=== PATIENT | male | born 1960 | race Two or more races ===

== ENCOUNTER 2019-08-28 14:18 | Inpatient (IN) | payer OTHER ==
[~2019-08-28] VITALS: Ht 182.9 cm; Wt 73.8 kg
--- NOTE | 2019-08-28 05:02 | NUR ---
Pt. given for edematous Left foot pain of 7/10 scale, aching and hurting.
[2019-08-28] MEDS ORDERED: SODIUM CHLORIDE 0.9% 1,000 ML IV ONE (14:25)
[2019-08-28 15:32] LABS: Basophils # (auto) 0.1 10 ^3/uL (0-0.2); Basophils % (auto) 0.7 % (0.0-2.0); Eosinophils # (auto) 0 10 ^3/uL (0-0.8); Hematocrit 33.8 % (41.0-53.0); Lymphocytes # (auto) 0.9 10 ^3/uL (0.4-5.4); Lymphocytes % (auto) 5.1 % (10.0-50.0); Mean Corpuscular Hemoglobin 28.1 pg (28.0-32.0); Mean Corpuscular Hgb Conc. 32.6 g/dL (32.0-36.0); Mean Corpuscular Volume 86.2 fL (80.0-100.0); Monocytes # (auto) 0.7 10 ^3/uL (0-1.3); Monocytes % (auto) 3.9 % (0.0-12.0); Neutrophils # (auto) 15.7 10 ^3/uL (1.6-8.6); Neutrophils % (auto) 90.3 % (37.0-80.0); Platelet Count (auto) 303 10^3/uL (140-450); Red Blood Cells 3.92 10^6/uL (4.5-5.90); White Blood Cell 17.4 10^3/uL (4.4-10.8)
[2019-08-28 15:50] LABS: Alanine Aminotransferase 25 U/L (16-61); Albumin 2.2 g/dL (3.4-5.0); Anion Gap 6 (5-15); Aspartate Aminotransferase 25 U/L (15-37); BUN/Creatinine Ratio 30.3; Blood Urea Nitrogen 43 mg/dL (7-18); Calcium 8.2 mg/dL (8.5-10.1); Carbon Dioxide 24 mmol/L (21-32); Chloride 99 mmol/L (98-107); GFR African American 66 mL/min; GFR Non-African American 55 mL/min; Glucose 342 mg/dL (74-106); Potassium 4.8 mmol/L (3.5-5.1); Sodium 129 mmol/L (136-145)
[2019-08-28 15:53] LABS: Alkaline Phosphatase 81 U/L (45-117); Bilirubin, Total 0.5 mg/dL (0.2-1.0); Total Protein 7.9 g/dL (6.4-8.2)
[2019-08-28] MEDS ORDERED: CLINDAMYCIN 600MG IV 50 ML IV ONE (16:00)
[2019-08-28] MEDS ORDERED: DEXTROSE (50%) 50ML SYRG IV PRN (17:15)
[2019-08-28] MEDS ORDERED: VANCOMYCIN PER PHARMACY 0 MG IV SCH (17:15)
[2019-08-28] MEDS ORDERED: VANCOMYCIN 1GM/250ML 250 ML IV ONE (17:15)
[2019-08-28] MEDS ORDERED: MORPHINE SULF INJ 2 MG/ML SYRINGE 1ML IV PRN (17:15)
[2019-08-28] MEDS ORDERED: HYDROcodone-ACET 10/325MG TAB PO PRN (17:15)
[2019-08-28] MEDS ORDERED: NITROGLYCERIN 0.4 MG SL TAB SL PRN (17:15)
--- NOTE | 2019-08-28 18:18 | NUR ---
MS admit from ER KAY MANEDL admitted to [facility] after SBAR received. Patient oriented to Jelly Montilla, primary RN, unit, room, bed, and unit policies regarding patient care and visiting hours. Patient weighed by bedscale and encouraged to call if they need something. Dressing to right toe noted c/d/i. Abx resumed as ordered and currently infusing. No distress or sob noted. Patient denies any pain at this time. VSS. All questions and concerns addressed, patient verbalized understanding. Guards at bedside
[2019-08-28 18:47] VITALS: BP 153/73
--- NOTE | 2019-08-28 19:00 | NUR ---
Received report from Day Shift RN. Reaves. Pt. an Inmate, in bed resting, in room Air, no s/s of sob, breathing regular unlabored. Pt. denies pain, with Officer @ the bedside. Keep safe and real estate listing consultant bed.
--- NOTE | 2019-08-28 19:08 | NUR ---
Patient care endorsed endorsed care to Radha marti. Patient laying in bed no acute distress or sob noted. Call light within reach. Guards at bedside. Pt currently infusing abx as ordered
[2019-08-28 19:15] VITALS: BP 153/73
--- NOTE | 2019-08-28 19:26 | NUR ---
MED REC PATIENT STATES HE TAKES METFORMIN AND GLYBURIDE DOES NOT KNOW DOSAGE OR FREQUENCY
--- NOTE | 2019-08-28 19:41 | NUR ---
MRSA MRSA NARES SENT TO LAB PER PROTOCOL
--- NOTE | 2019-08-28 20:00 | NUR ---
Complete assessment done from head to toe. Pt. Medical-Surgical, non-tele, in Room Air, lungs are clear, breathing regular and unlabored. Pt. an inmate with Officers @ the bedside. Pt. on bedrest with handcuffs on both lower forearms, can ambulate to the BR with assist of the officer/RN/SEISMIC PLOTTER. Pt. able to use urinal @ the bedside. Keep pt. clean, dry and comfortable in bed.
[2019-08-28 22:00] VITALS: BP 145/77
--- NOTE | 2019-08-28 22:40 | NUR ---
Accucheck taken with results of BS = 465 , will repeat Accucheck.
[2019-08-28] MEDS: InsuLIN REG 1unit/0.01ml Soln (100units/ml) SC SCH (22:43)
[2019-08-28] MEDS: ACCU-CHEK COMFORT CURVE STRIP VI SCH (22:43)
--- NOTE | 2019-08-28 22:43 | NUR ---
Accucheck taken with result with BS = 487 , this is a repeat Accucheck and pt. made aware of the results.
--- NOTE | 2019-08-28 22:43 | NUR ---
Pt. refused coverage of 15 units. Pt. provided explanation and health teachings about the use of Regular Human Insulin, pt. still refused and verbalized that " I dont want to be dependent on any Insulin" "I used to eat alot and the diabetic pills such as Metformin and glyburide-Micronase tabs. helps lower my blood sugar but I never use Insulin @ the [facility]." Pt. refused the Insulin coverage of [address] Osman to notify pt. latest blood sugar and pt. refusal of the Regular human Insulin coverage.
[2019-08-28] MEDS: ATORVASTATIN 20 MG TAB PO SCH (22:46)
[2019-08-28] MEDS: metFORMIN HYDROCHLORIDE 500 MG TAB PO SCH (22:46)
--- NOTE | 2019-08-28 22:46 | NUR ---
Meds. as scheduled given. Pt. made aware of the mechanism of actions of the meds. as scheduled. Pt. verbalized understanding.
[2019-08-28] MEDS: glyBURIDE 5 MG TAB PO SCH (22:47)
--- NOTE | 2019-08-28 23:30 | NUR ---
Called/Paged notify Dr. Osman of pt.'s high blood sugar 1.) 265 and then repeated Accucheck result 2. ) 487 and that Pt. refused the 15 units for blood sugar greater > 400 , and that the pt. is used with the oral pills to reduce his blood [facility] and that pt. doesn't want to be dependent of the Insulin. Dr. Osman aware of pt.'s refusal and reasoning of his refusal. Dr. Osman and gave no further orders.
--- NOTE | 2019-08-29 00:30 | NUR ---
Pt. resting quietly, sleeping and awakens intermittently. Pt. provided a quiet environment and Lights off to help support proper resting @ night.
--- NOTE | 2019-08-29 03:00 | NUR ---
Pt. given complete bedbath after soiling and cleansed and washed pt. perineal, perianal and whole body. Changed all bed linens, bed sheets, chux, pillow cases, blankets and gown. Pt. dry, clean, and keep comfortable.
[2019-08-29 04:30] VITALS: BP 132/72
--- NOTE | 2019-08-29 04:30 | NUR ---
Pt. complete bedbath given, washed and cleansed pt. Changed all bed sheets, chux, pillow cases, and gown. Pt. temp. is 101.8 Degrees F. Pt. provided cooling measures, placed cool towels on the forehead, ice packs @ both axillary areas and pt. increased fluid or water intake. Pt. able to drink a few glasses of water, given a whole pitcher of water to drink. Encouraged pt. to drink plenty of fluid. Keep pt. clean, safe and cool in bed. Will monitor temp. later.
--- NOTE | 2019-08-29 05:02 | NUR ---
Pt. given Watson 10/325 mg. po 1 tab for 7/10 scale headache, Right great toe wound pain, and gen. pain. Keep pt. safe and comfortable in bed with Officers @ the bedside guarding him.
--- NOTE | 2019-08-29 06:02 | NUR ---
Pt. calm and sleeping. No s/s of facial grimacing, no s/s of anxiety, and no s/s of discomfort. Pt. quiet @ this time and keep environment tranquil.
--- NOTE | 2019-08-29 07:00 | NUR ---
Gave report to Day Shift BARBARA Rowan.
--- NOTE | 2019-08-29 08:01 | NUR ---
Pagemegan Carvajal regarding critical potassium level. Patient asymptomatic at this time, no s/s of distress. Will continue to monitor. Addendum: 08/29/19 at 0817 by Anum Garcia RN WRONG PATIENT, please disregard note.
[2019-08-29 08:30] VITALS: BP 121/66
--- NOTE | 2019-08-29 08:30 | NUR ---
Opening Note Assumed care of patient, he is A & O x 4, no s/s of distress. POC discussed with patient. Patient is comfortable at this time, no complaints of pain. Bed is in lowest, locked position, call light within reach, guards at bedside. Will continue to monitor Q1h and PRN.
[2019-08-29] MEDS: metFORMIN HYDROCHLORIDE 500 MG TAB PO SCH ×2 (10:38→21:43)
[2019-08-29] MEDS: glyBURIDE 5 MG TAB PO SCH ×2 (10:38→21:44)
[2019-08-29] MEDS: ACCU-CHEK COMFORT CURVE STRIP VI SCH ×2 (10:39→21:44)
[2019-08-29] MEDS: DULoxetine HCL 30 MG CAP PO SCH (10:39)
[2019-08-29] MEDS: LISINOPRIL 10 MG TAB PO SCH (10:39)
--- NOTE | 2019-08-29 10:45 | NUR ---
Spoke to Dr. Osman over the phone. Informed Dr. Osman patient is refusing insulin with blood glucose at 457. Last night patient also refused insulin with blood glucose of 487. Dr. Osman informed this RN to notify patient that insulin is necessary for the overall treatment of the patient and is necessary for effective treatment of the infection.
--- NOTE | 2019-08-29 11:00 | NUR ---
Patient agreed to medication administration. Insulin given as ordered. Education given regarding insulin and diabetic management during infection.
[2019-08-29] MEDS: InsuLIN REG 1unit/0.01ml Soln (100units/ml) SC SCH ×2 (11:03→21:45)
[2019-08-29] MEDS ORDERED: ACETAMINOPHEN 325 MG TAB PO PRN (12:00)
[2019-08-29 12:33] VITALS: BP 133/69
[2019-08-29 12:51] LABS: INR 1.09 (0.9-1.15); Partial Thromboplastin Time 28.3 sec (23.64-32.05)
--- NOTE | 2019-08-29 13:30 | NUR ---
Patient rounding Upon patient assessment patient appeared shakey, but A & O x4, no s/s of distress. Checked patient temperature 97.7 orally and checked blood glucose 382, coming down from previous accucheck. Will continue to monitor and medicate per orders.
--- NOTE | 2019-08-29 14:35 | NUR ---
Patient sent to MRI.
--- NOTE | 2019-08-29 17:35 | NUR ---
Spoke to Dr. Quintero over telephone Orders received, read back and verified for arterial study of the lower extremities.
[2019-08-29] MEDS: VANCOMYCIN 1GM/250ML 250 ML IV SCH (18:15)
--- NOTE | 2019-08-29 19:40 | NUR ---
Opening Shift Note Assumed care of patient, awake and alert. No S/S of distress/SOB or pain. Instructed on POC and to call for assist PRN. Bed in lowest locked position, call light within reach, side rails up x2. Will continue to monitor for changes Q1hr and PRN.
--- NOTE | 2019-08-29 20:27 | NUR ---
MD Called Spoke with regarding results of arterial study. New orders recieved and read back for verification for cardiology consult with Dr. Grigsby. Continue care.
[2019-08-29] MEDS: ATORVASTATIN 20 MG TAB PO SCH (21:43)
--- NOTE | 2019-08-29 21:55 | NUR ---
Called/paged Dr. Delgadillo called regarding elevated BS of 419 and 492, 15 units given, see eMAR. Waiting for call back. Continue care.
--- NOTE | 2019-08-29 22:07 | NUR ---
returned call Dr. Delgadillo returned call, updated on patient status and reason for call, new orders received and read back for verification. Continue care.
[2019-08-29 22:20] VITALS: BP 138/70
--- NOTE | 2019-08-30 01:35 | NUR ---
Closing Note Endorsed care to Gee RN. Pt sleeping, no distress noted.
--- NOTE | 2019-08-30 01:40 | NUR ---
Pt recieved ,sleeping,no signs of distress.
[2019-08-30 05:30] VITALS: BP 138/70
[2019-08-30 05:59] LABS: Basophils # (auto) 0.1 10 ^3/uL (0-0.2); Basophils % (auto) 0.5 % (0.0-2.0); Eosinophils # (auto) 0.1 10 ^3/uL (0-0.8); Eosinophils % (auto) 0.5 % (0.0-7.0); Hematocrit 30.1 % (41.0-53.0); Lymphocytes # (auto) 1.1 10 ^3/uL (0.4-5.4); Lymphocytes % (auto) 7.3 % (10.0-50.0); Mean Corpuscular Hemoglobin 28.4 pg (28.0-32.0); Mean Corpuscular Hgb Conc. 33.4 g/dL (32.0-36.0); Monocytes # (auto) 0.6 10 ^3/uL (0-1.3); Neutrophils # (auto) 12.7 10 ^3/uL (1.6-8.6); Neutrophils % (auto) 87.7 % (37.0-80.0); Platelet Count (auto) 332 10^3/uL (140-450); Red Blood Cells 3.54 10^6/uL (4.5-5.90); Red Cell Distribution Width 14.3 % (11.8-14.3); White Blood Cell 14.5 10^3/uL (4.4-10.8)
[2019-08-30 06:14] LABS: BUN/Creatinine Ratio 19.8; Calcium 8.1 mg/dL (8.5-10.1); Potassium 4.5 mmol/L (3.5-5.1)
[2019-08-30 09:00] VITALS: BP 130/66
[2019-08-30] MEDS ORDERED: metFORMIN HYDROCHLORIDE 850 MG TAB PO SCH (10:00)
[2019-08-30] MEDS ORDERED: INSULIN LANTUS (GLARGINE) 1 /0.01ml (100units/ml) SC SCH ×2 (10:00→13:15)
[2019-08-30] MEDS: VANCOMYCIN 1GM/250ML 250 ML IV SCH (10:27)
[2019-08-30] MEDS: DULoxetine HCL 30 MG CAP PO SCH (10:28)
[2019-08-30] MEDS: LISINOPRIL 10 MG TAB PO SCH (10:29)
[2019-08-30] MEDS: ENOXAPARIN SOD 40 MG/0.4 ML SYRINGE SC SCH (10:29)
[2019-08-30] MEDS: InsuLIN REG 1unit/0.01ml Soln (100units/ml) SC SCH ×2 (10:32→21:18)
[2019-08-30] MEDS: ACCU-CHEK COMFORT CURVE STRIP VI SCH ×2 (10:32→21:16)
--- NOTE | 2019-08-30 11:00 | NUR ---
WOUND CARE NOTE: WOUND CONSULT ORDERED FOR PATIENT WITH NECROTIC RIGHT # 1 TOE. PATIENT NOTED UPON ADMIT TO HAVE NECROTIC TOE. WOUND PHOTO TAKEN AT THAT TIME FOR REFERENCE. PATIENT ADMITTED TO [facility] WITH DIAGNOSIS OF RIGHT TOE OSTEOMYELITIS. ENTIRE RIGHT # 1 TOE IS BLACK WITH WET GANGRENE. DR. ALFREDO HAS CONSULTED WITH PATIENT, ORDERS PRESCRIBED. PATIENT WOULD BENEFIT FROM DAILY DRY DRESSING CHANGES OF THE RIGHT # 1 TOE. ALL OTHER RECOMMENDATIONS DEFERRED TO TICK SEWER AT THIS POINT. SKIN/WOUND CARE PLAN IMPLEMENTED. NO FURTHER WOUND CARE MONITORING REQUIRED. Addendum: 08/30/19 at 1645 by Windy Massey RN Amended: Links added.
[2019-08-30 12:30] VITALS: BP 106/51
[2019-08-30] MEDS ORDERED: INSULIN LANTUS (GLARGINE) 1 /0.01ml (100units/ml) SC ONE (13:45)
[2019-08-30 17:22] VITALS: BP 136/68
--- NOTE | 2019-08-30 18:25 | NUR ---
Patient rounding, wound care. Changed linens, cleaned wound and changed dressing, obtained wound culture at this time to the right great toe, sent to lab. Patient tolerated well.
--- NOTE | 2019-08-30 19:50 | NUR ---
Opening Shift Note Assumed care of patient, awake and alert. No S/S of distress/SOB. Fall and safety precautions in place. Call light within reach and able to use. Instructed on POC and to call for assist PRN, patient verbalized understanding and in agreement. Will continue to monitor for changes Q1hr and PRN.
[2019-08-30] MEDS: ATORVASTATIN 20 MG TAB PO SCH (21:17)
[2019-08-30 22:00] VITALS: BP 134/76
--- NOTE | 2019-08-30 22:00 | NUR ---
TEMP ORAL TEMP 99.7 F. COOLING MEASURES INITIATED. PATIENT EDUCATED ON INDICATIONS FOR COOLING MEASURES, PATIENT VERBALIZED UNDERSTANDING AND IN AGREEMENT. WILL CONTINUE TO MONITOR.
--- NOTE | 2019-08-30 23:00 | NUR ---
TEMP RECHECK PATIENT ORAL TEMP NOW 98.5 F. WILL CONTINUE TO MONITOR.
[2019-08-31] MEDS: VANCOMYCIN 1GM/250ML 250 ML IV SCH ×2 (01:07→18:01)
[2019-08-31 05:00] VITALS: BP 131/63
--- NOTE | 2019-08-31 05:30 | NUR ---
TEMP ORAL TEMP 99.7 F. PATIENT REFUSING COOLING MEASURES. PATIENT EDUCATED ON IMPORTANCE OF COOLING MEASURES, PATIENT VERBALIZED UNDERSTANDING. EDUCATION REINFORCED AND PATIENT CONTINUES TO REFUSE. WILL CONTINUE TO MONITOR.
--- NOTE | 2019-08-31 06:30 | NUR ---
TEMP RECHECK ORAL TEMP 99.2 F. PATIENT CONTINUES TO REFUSE COOLING MEASURES. WILL CONTINUE TO MONITOR.
[2019-08-31 09:05] VITALS: BP 147/71
[2019-08-31] MEDS ORDERED: INSULIN LANTUS (GLARGINE) 1 /0.01ml (100units/ml) SC SCH (10:00)
[2019-08-31] MEDS: InsuLIN REG 1unit/0.01ml Soln (100units/ml) SC SCH ×2 (10:00→21:06)
[2019-08-31] MEDS: LISINOPRIL 10 MG TAB PO SCH (11:30)
[2019-08-31] MEDS: DULoxetine HCL 30 MG CAP PO SCH (11:30)
[2019-08-31] MEDS: ASPirin 81 mg TAB PO SCH (11:30)
[2019-08-31] MEDS: CLOPIDOGREL BISULFATE 75 MG TAB PO SCH (11:30)
[2019-08-31] MEDS: ENOXAPARIN SOD 40 MG/0.4 ML SYRINGE SC SCH (11:31)
--- NOTE | 2019-08-31 11:40 | NUR ---
Paged Dr. Osman and spoke to him regarding patient blood glucose Lantus order confirmed to go ahead and give with patient blood sugar at 96. Will medicate per orders. Patient alert and oriented at this time, no s/s of distress.
[2019-08-31] MEDS: ACCU-CHEK COMFORT CURVE STRIP VI SCH ×2 (11:51→21:03)
[2019-08-31] MEDS: INSULIN LANTUS (GLARGINE) 1 /0.01ml (100units/ml) SC SCH (12:30)
[2019-08-31 13:00] VITALS: BP 118/66
[2019-08-31 17:28] VITALS: BP 125/79
--- NOTE | 2019-08-31 17:36 | NUR ---
Patient temp 100 Removed some blanket from patient to begin cooling. Patient tolerating well.
--- NOTE | 2019-08-31 19:40 | NUR ---
Opening Shift Note Assumed care of patient, awake and alert. No S/S of distress/SOB or pain. Fall and safety precautions in place. Call light within reach and able to use. Instructed on POC and to call for assist PRN, patient verbalized understanding and in agreement. Will continue to monitor for changes Q1hr and PRN.
--- NOTE | 2019-08-31 20:00 | NUR ---
WOUND CULTURE WOUND CULTURE OF RIGHT GREAT TOE OBTAINED AND SENT TO LAB. WILL CONTINUE TO MONITOR.
--- NOTE | 2019-08-31 20:10 | NUR ---
DRESSING CHANGED WOUND CARE / DRESSING CHANGE, PER MD ORDER, COMPLETE OF RIGHT GREAT TOE. PATIENT TOLERATED WELL. WILL CONTINUE TO MONITOR.
[2019-08-31 21:00] VITALS: BP 121/75
[2019-08-31] MEDS: ATORVASTATIN 20 MG TAB PO SCH (21:03)
[2019-08-31] MEDS: ACETAMINOPHEN 325 MG TAB PO PRN (21:09)
--- NOTE | 2019-08-31 21:09 | NUR ---
TEMP PATIENT ORAL TEMP 100.1. PATIENT REFUSED COOLING MEASURES, DESPITE EDUCATION, REINFORCEMENT, AND HEARING PATIENT'S CONCERNS OF BEING COLD. PATIENT REEDUCATED OF NEED TO BRING BODY TEMPERATURE DOWN. PATIENT ONLY ACCEPTS TYLENOL AT THIS TIME (SEE EMAR). WILL CONTINUE TO MONITOR.
--- NOTE | 2019-08-31 22:09 | NUR ---
TEMP RECHECK PATIENT ORAL TEMP 99.2. PATIENT CONTINUE TO REFUSE REMOVING EXCESSIVE BLANKETS AND ICE PACKS AND REDUCING TEMPERATURE IN ROOM. PATIENT STATES, "I'LL BE ALRIGHT." REINFORCED NEED/INDICATION FOR COOLING MEASURES. PATIENT CONTINUE TO REFUSE. WILL CONTINUE TO MONITOR.
[2019-09-01 05:00] VITALS: BP 137/67
[2019-09-01] MEDS: VANCOMYCIN 1GM/250ML 250 ML IV SCH ×2 (05:50→18:14)
[2019-09-01 06:24] LABS: Eosinophils # (auto) 0.1 10 ^3/uL (0-0.8); Eosinophils % (auto) 0.4 % (0.0-7.0); Monocytes # (auto) 1.1 10 ^3/uL (0-1.3)
[2019-09-01 06:27] LABS: Basophils # (auto) 0.1 10 ^3/uL (0-0.2); Basophils % (auto) 1.1 % (0.0-2.0); Hemoglobin 10.2 g/dL (13.5-17.5); Lymphocytes # (auto) 1.2 10 ^3/uL (0.4-5.4); Lymphocytes % (auto) 8.8 % (10.0-50.0); Mean Corpuscular Hemoglobin 28.5 pg (28.0-32.0); Monocytes % (auto) 8.4 % (0.0-12.0); Neutrophils # (auto) 10.8 10 ^3/uL (1.6-8.6); Neutrophils % (auto) 81.3 % (37.0-80.0); Platelet Count (auto) 465 10^3/uL (140-450); Red Blood Cells 3.57 10^6/uL (4.5-5.90); Red Cell Distribution Width 14.3 % (11.8-14.3); White Blood Cell 13.3 10^3/uL (4.4-10.8)
[2019-09-01 06:39] LABS: Albumin 1.8 g/dL (3.4-5.0); BUN/Creatinine Ratio 18.7; Bilirubin, Total 0.5 mg/dL (0.2-1.0); Calcium 8.3 mg/dL (8.5-10.1); Total Protein 6.9 g/dL (6.4-8.2)
--- NOTE | 2019-09-01 07:35 | NUR ---
Opening Shift Note Assumed care of patient, awake and alert. No S/S of distress/SOB, no pain noted or reported. Updated on POC and instructed to call for assistance as needed, patient verbalized understanding. Bed locked in lowest position, side rails up x3, call light within reach. Guards at bedside. Will continue to monitor for changes Q1hr and PRN.
--- NOTE | 2019-09-01 07:45 | NUR ---
Patient taken to microbiology lab analyst for procedure. No distress upon departure.
[2019-09-01] MEDS ORDERED: LIDOCAINE 2%HCL (LOCAL ANESTH.) INJ 20ML MDV ONE (08:11)
[2019-09-01] MEDS ORDERED: IODIXANOL 320MG/ML 100ML BTL IV ONE ×2 (08:11→08:42)
[2019-09-01] MEDS ORDERED: ANGIOMAX 250 MG VIAL IV ONE (08:16)
[2019-09-01] MEDS ORDERED: fentaNYL CITRATE 100 MCG/2 ML VL ONE (08:17)
[2019-09-01] MEDS ORDERED: SODIUM CHL 0.9% 50 ML ONE (08:17)
[2019-09-01] MEDS ORDERED: diphenhdrAMINE HCL 50 MG/1 ML VL ONE (08:17)
[2019-09-01] MEDS ORDERED: MIDAZOLAM HCL 1MG/1ML-2 ML VIAL ONE (08:17)
--- NOTE | 2019-09-01 10:40 | NUR ---
Patient returned from research laboratory specialist following procedure. KAY MANDEL brought to room following angiogram. Left groin catheterization site assessed for any bleeding, redness or swelling. Angioseal device in place. Pedal pulses on affected leg assessed for positive tissue perfusion. Patient instructed on need to notify staff immediately if any pain, burning or wetness to site, and any lower back pain. Patient instructed to lie flat until 1130. All questions and concerns addressed, patient verbalized understanding of all education and instruction. Addendum: 09/01/19 at 1055 by Bambi Rod RN No s/s of distress or SOB at this time. No pain noted or reported.
[2019-09-01 10:47] VITALS: BP 160/86
[2019-09-01] MEDS: ENOXAPARIN SOD 40 MG/0.4 ML SYRINGE SC SCH (11:17)
[2019-09-01] MEDS: ASPirin 81 mg TAB PO SCH (11:18)
[2019-09-01] MEDS: CLOPIDOGREL BISULFATE 75 MG TAB PO SCH (11:18)
[2019-09-01] MEDS: LISINOPRIL 10 MG TAB PO SCH (11:19)
[2019-09-01] MEDS: DULoxetine HCL 30 MG CAP PO SCH (11:19)
[2019-09-01] MEDS: INSULIN LANTUS (GLARGINE) 1 /0.01ml (100units/ml) SC SCH (11:24)
[2019-09-01] MEDS: ACCU-CHEK COMFORT CURVE STRIP VI SCH ×2 (11:24→21:27)
[2019-09-01] MEDS: InsuLIN REG 1unit/0.01ml Soln (100units/ml) SC SCH ×2 (11:24→21:33)
--- NOTE | 2019-09-01 11:45 | NUR ---
BLOOD SUGAR AT 63, PROVIDED PATIENT WITH 8OZ OF ORANGE JUICE.
[2019-09-01 13:00] VITALS: BP 130/71
--- NOTE | 2019-09-01 16:00 | NUR ---
SPOKE WITH DR ALFREDO SURGERY SCHEDULED FOR SATURDAY 09/02.
[2019-09-01 16:18] VITALS: BP 140/75
--- NOTE | 2019-09-01 19:30 | NUR ---
Opening Shift Note Assumed care of patient, awake and alert. No S/S of distress/SOB. Fall and safety precautions in place. Call light within reach and able to use. Instructed on POC and to call for assist PRN, patient verbalized understanding. Will continue to monitor for changes Q1hr and PRN.
[2019-09-01] MEDS: ACETAMINOPHEN 325 MG TAB PO PRN (21:27)
[2019-09-01] MEDS: ATORVASTATIN 20 MG TAB PO SCH (21:27)
--- NOTE | 2019-09-01 21:35 | NUR ---
TEMP PATIENT TEMP 100.2 F. PATIENT EDUCATED ON INDICATION/NEED/IMPORTANCE OF COOLING MEASURES. PATIENT REFUSED COOLING MEASURES, EXCEPT FOR MEDICATION ADMINISTRATION (SEE EMAR). PATIENT EDUCATION REINFORCED, PATIENT CONTINUES TO REFUSE. WILL CONTINUE TO MONITOR.
[2019-09-01 22:00] VITALS: BP 131/73
--- NOTE | 2019-09-01 22:45 | NUR ---
TEMP RECHECK PATIENT ORAL TEMP 98.2 F. WILL CONTINUE TO MONITOR.
[2019-09-02 05:00] VITALS: BP 129/73
[2019-09-02 06:35] LABS: Calcium 8.5 mg/dL (8.5-10.1); Potassium 5.1 mmol/L (3.5-5.1)
--- NOTE | 2019-09-02 06:41 | NUR ---
AWAITING VANCO TROUGH RESULTS HOLDING MEDICATION (SEE EMAR) OF NOW. WILL CONTINUE TO MONITOR. Addendum: 09/02/19 at 0644 by DAVID SANTANA RN RN TIME CORRECTION: 0600.
--- NOTE | 2019-09-02 06:44 | NUR ---
LAB CALLED TO INQUIRE ABOUT VANCO TROUGH RESULTS. AWAITING RESPONSE.
--- NOTE | 2019-09-02 06:49 | NUR ---
LAB STATED IT WILL BE ABOUT 5 MINUTES BEFORE RESULTS COME IN FOR VANCO TROUGH. WILL CONTINUE TO MONITOR.
[2019-09-02] MEDS: VANCOMYCIN 1GM/250ML 250 ML IV SCH ×2 (06:54→17:56)
[2019-09-02 09:00] VITALS: BP 131/67
[2019-09-02] MEDS: ACCU-CHEK COMFORT CURVE STRIP VI SCH ×2 (10:00→21:49)
[2019-09-02] MEDS: ASPirin 81 mg TAB PO SCH (10:00)
[2019-09-02] MEDS: ENOXAPARIN SOD 40 MG/0.4 ML SYRINGE SC SCH (10:00)
[2019-09-02] MEDS: CLOPIDOGREL BISULFATE 75 MG TAB PO SCH (10:00)
--- NOTE | 2019-09-02 10:40 | NUR ---
SPOKE TO Chaim ALFREDO. STATED TO HOLD ASPIRIN, PLAVIX, AND LOVENOX FOR TODAY.
[2019-09-02] MEDS: DULoxetine HCL 30 MG CAP PO SCH (11:07)
[2019-09-02] MEDS: LISINOPRIL 10 MG TAB PO SCH (11:08)
[2019-09-02] MEDS: INSULIN LANTUS (GLARGINE) 1 /0.01ml (100units/ml) SC SCH (11:19)
[2019-09-02] MEDS: InsuLIN REG 1unit/0.01ml Soln (100units/ml) SC SCH ×2 (11:19→21:49)
--- NOTE | 2019-09-02 11:23 | NUR ---
LISA GALVAN REGARDING INCREASED BLOOD SUGAR OF 401. PATIENT GIVEN SCHEDULED INSULIN 15 UNITS, LANTUS 70 UNITS. INFORMED [facility] LUMBER STICKER.
[2019-09-02 13:00] VITALS: BP 106/62
[2019-09-02 17:00] VITALS: BP 117/66
--- NOTE | 2019-09-02 19:00 | NUR ---
Opening Shift Note Assumed care of patient, awake and alert. No S/S of distress/SOB or pain. Instructed on POC and to call for assist PRN, will continue to monitor for changes Q1hr and PRN. Pt in lowest possible position with bed rails up x2 and call light within reach.
[2019-09-02 20:00] VITALS: BP 119/71
--- NOTE | 2019-09-02 20:00 | NUR ---
Pt to go for surgery 09/02. Waiting for orders to have patient sign consent for surgery. Will get signature of consent for blood transfusion and anesthesia. Waiting for pt to pee to send urine for a urinalysis as none was done. Talked to pt about this, will continue to monitor.
--- NOTE | 2019-09-02 20:39 | NUR ---
PICC line placement Patient/Patient significant other educated on need for PICC line placement. All risks and benefits explained and all questions and concerns addressed prior to procedure. Noted past medical history and allergies with no contraindications. INR and Plt counts within acceptable range. 4 fr PICC line inserted via RIGH BRACHIAL vein using [employer] US and Tip Location System. Sterile technique with maximum barrier precautions utilized. Blood return obtained from SINGLE lumen and flushed easily with NS using proper technique. PICC secured with Stat-lock; biodisc and occlusive dressing applied. Stat portable chest x-ray obtained for PICC tip placement. *Baseline Arm Circumference 25CM. PICC lot #[id number]. INTERNAL LENGTH 45CM EXTERNAL LENGTH 25CM
[2019-09-02] MEDS ORDERED: LIDOCAINE 1% (LOCAL ANESTH.) PF 5ml SDV ID ONE (20:45)
[2019-09-02] MEDS: SODIUM CHLOR 0.9% PF (SALINE LOCK) 10ML VIAL/SYR IV SCH (21:48)
[2019-09-02] MEDS: ATORVASTATIN 20 MG TAB PO SCH (21:49)
--- NOTE | 2019-09-02 22:05 | NUR ---
OK to use PICC line Xray completed. OK to use PICC line by RADIOLOGIST.
[2019-09-03] VITALS (7 sets, daily range): BP systolic 119–156; BP diastolic 70–81
[2019-09-03 04:16] LABS: Urine Amorphous Crystal FEW /hpf (None Seen); Urine Bacteria FEW /hpf (None Seen); Urine Blood Negative /uL (Negative); Urine Hyaline Cast FEW /lpf (0 - 2); Urine Specific Gravity 1.013 (1.001-1.035); Urine WBC 2 /hpf (0 - 3)
[2019-09-03] MEDS: VANCOMYCIN 1GM/250ML 250 ML IV SCH ×2 (05:57→17:54)
--- NOTE | 2019-09-03 08:02 | NUR ---
Opening Shift Note Assumed care of patient, awake and alert. No S/S of distress/SOB or pain. Instructed on POC and to call for assist PRN, will continue to monitor for changes Q1hr and PRN. Guards at bedside. NPO status maintained for procedure.
--- NOTE | 2019-09-03 08:55 | NUR ---
Off Unit Patient taken to pre-op for procedure. Guards in attendance.
[2019-09-03] MEDS ORDERED: MIDAZOLAM HCL 1MG/1ML-2 ML VIAL ONE (09:06)
[2019-09-03] MEDS ORDERED: ONDANSETRON HCL 4 MG/2 ML VIAL ONE (09:06)
[2019-09-03] MEDS ORDERED: SODIUM CHLORIDE LOCK 10 ML ONE (09:06)
[2019-09-03] MEDS ORDERED: fentaNYL CITRATE 100 MCG/2 ML VL ONE (09:06)
[2019-09-03] MEDS ORDERED: PROPOFOL 10 MG/ML 20 ML IV ONE (09:06)
[2019-09-03] MEDS ORDERED: LIDOCAINE HCL 2 %PF INJ 10ML AMP IJ ONE (09:27)
[2019-09-03] MEDS ORDERED: BUPIVACAINE HCL 50 ML ONE (09:27)
[2019-09-03] MEDS ORDERED: MORPHINE SULFATE 4 MG/ML SYR/VIAL IV PRN (09:30)
[2019-09-03] MEDS ORDERED: KETOROLAC TROMETH 15 mg/ml 1ML VL IV ONE (09:30)
[2019-09-03] MEDS ORDERED: METOCLOPRAMIDE HCL 5MG/ml INJ 2ml VIAL IV PRN (09:30)
[2019-09-03] MEDS ORDERED: fentaNYL CITRATE 100 MCG/2 ML VL IV PRN (09:30)
[2019-09-03] MEDS ORDERED: ACCU-CHEK COMFORT CURVE STRIP VI ONE (09:30)
[2019-09-03] MEDS ORDERED: HYDROmorphone HCL 2 MG/ML VL IV PRN (09:30)
[2019-09-03] MEDS ORDERED: ceFAZolin 1GM VL ONE (09:39)
[2019-09-03] MEDS: ENOXAPARIN SOD 40 MG/0.4 ML SYRINGE SC SCH (10:00)
[2019-09-03] MEDS: CLOPIDOGREL BISULFATE 75 MG TAB PO SCH (10:00)
[2019-09-03] MEDS: InsuLIN REG 1unit/0.01ml Soln (100units/ml) SC SCH ×2 (10:00→21:42)
[2019-09-03] MEDS: ASPirin 81 mg TAB PO SCH (10:00)
[2019-09-03] MEDS ORDERED: KETAMINE HCL 10 ML ONE (10:09)
--- NOTE | 2019-09-03 11:40 | NUR ---
On Unit Patient on unit from OR. Dressing to left foot slightly soiled, but intact. No complaints of pain voiced. Guards at bedside. Will continue to monitor. Addendum: 09/03/19 at 1813 by WILLIAM MARTINES RN Dressing to right foot not left foot.
--- NOTE | 2019-09-03 11:46 | NUR ---
NUTRITION ASSESSMENT NOTES Please refer to link notes of nutrition screen form filed under the intervention section of the plan of care for further details. Est. Energy Needs: 1455-7051 kcal (25-30 kcal/kg BW). Est. Protein Needs: 91-114 gms/day (1.2-1.5 gms/kg BW). Will continue to monitor pertinent labs and reassess nutrient need prn Addendum: 09/03/19 at [address] Amended: Links added.
[2019-09-03] MEDS: DULoxetine HCL 30 MG CAP PO SCH (11:47)
[2019-09-03] MEDS: LISINOPRIL 10 MG TAB PO SCH (11:47)
[2019-09-03] MEDS: ACCU-CHEK COMFORT CURVE STRIP VI SCH ×2 (11:53→21:14)
[2019-09-03] MEDS: INSULIN LANTUS (GLARGINE) 1 /0.01ml (100units/ml) SC SCH (11:56)
[2019-09-03] MEDS: SODIUM CHLOR 0.9% PF (SALINE LOCK) 10ML VIAL/SYR IV SCH ×2 (12:48→22:00)
[2019-09-03 13:25] LABS: Basophils # (auto) 0 10 ^3/uL (0-0.2); Basophils % (auto) 0.3 % (0.0-2.0); Eosinophils # (auto) 0.1 10 ^3/uL (0-0.8); Eosinophils % (auto) 0.5 % (0.0-7.0); Lymphocytes # (auto) 1.3 10 ^3/uL (0.4-5.4); Monocytes # (auto) 0.8 10 ^3/uL (0-1.3)
[2019-09-03 13:27] LABS: Hematocrit 29.4 % (41.0-53.0); Hemoglobin 9.8 g/dL (13.5-17.5); Lymphocytes % (auto) 11.2 % (10.0-50.0); Mean Corpuscular Hemoglobin 28.3 pg (28.0-32.0); Mean Corpuscular Hgb Conc. 33.4 g/dL (32.0-36.0); Mean Corpuscular Volume 84.6 fL (80.0-100.0); Monocytes % (auto) 6.8 % (0.0-12.0); Neutrophils # (auto) 9.4 10 ^3/uL (1.6-8.6); Neutrophils % (auto) 81.2 % (37.0-80.0); Platelet Count (auto) 495 10^3/uL (140-450); Red Blood Cells 3.47 10^6/uL (4.5-5.90); Red Cell Distribution Width 14.4 % (11.8-14.3); White Blood Cell 11.6 10^3/uL (4.4-10.8)
[2019-09-03 13:43] LABS: INR 1.13 (0.9-1.15); Partial Thromboplastin Time 31.3 sec (23.64-32.05)
--- NOTE | 2019-09-03 17:50 | NUR ---
Dressing to right foot soiled, same reinforced.
--- NOTE | 2019-09-03 19:00 | NUR ---
Opening Shift Note Assumed care of patient, awake and alert. No S/S of distress/SOB or pain. Pt post right toe amputation, dressing in tact. Instructed on POC and to call for assist PRN, will continue to monitor for changes Q1hr and PRN. Pt in lowest possible position with call light within reach. Guards at bedside.
[2019-09-03] MEDS: ATORVASTATIN 20 MG TAB PO SCH (21:13)
[2019-09-03] MEDS: ACETAMINOPHEN 325 MG TAB PO PRN (21:57)
--- NOTE | 2019-09-04 01:20 | NUR ---
Dr. Montgomery at bedside No new orders at this time.
[2019-09-04 05:00] VITALS: BP 94/61
[2019-09-04 05:15] LABS: Basophils % (auto) 0.3 % (0.0-2.0); Eosinophils # (auto) 0 10 ^3/uL (0-0.8); Eosinophils % (auto) 0.2 % (0.0-7.0); Hemoglobin 9.3 g/dL (13.5-17.5); Neutrophils # (auto) 12.9 10 ^3/uL (1.6-8.6); Red Blood Cells 3.32 10^6/uL (4.5-5.90)
[2019-09-04 05:17] LABS: Basophils # (auto) 0.1 10 ^3/uL (0-0.2); Hematocrit 28.3 % (41.0-53.0); Lymphocytes # (auto) 1.3 10 ^3/uL (0.4-5.4); Lymphocytes % (auto) 8.3 % (10.0-50.0); Mean Corpuscular Hemoglobin 28.1 pg (28.0-32.0); Mean Corpuscular Volume 85.2 fL (80.0-100.0); Monocytes # (auto) 1.3 10 ^3/uL (0-1.3); Monocytes % (auto) 8.1 % (0.0-12.0); Neutrophils % (auto) 83.1 % (37.0-80.0); Platelet Count (auto) 505 10^3/uL (140-450); Red Cell Distribution Width 14.3 % (11.8-14.3); White Blood Cell 15.6 10^3/uL (4.4-10.8)
[2019-09-04] MEDS: VANCOMYCIN 1GM/250ML 250 ML IV SCH ×2 (05:53→17:08)
--- NOTE | 2019-09-04 05:53 | NUR ---
Vancomycin not given, Vanco trough at 21.4, Per protocol to hold if over 20.
--- NOTE | 2019-09-04 06:52 | NUR ---
Closing shift pt in lowest possible position with bed rails up x2 and call light within reach. Guards at bedside. Will endorse to day shift RN.
[2019-09-04 06:53] LABS: BUN/Creatinine Ratio 22.7; Calcium 8.4 mg/dL (8.5-10.1); Potassium 4.6 mmol/L (3.5-5.1)
--- NOTE | 2019-09-04 08:00 | NUR ---
Opening Note Assumed care of patient, he is A & O x4, no s/s of distress at this time. POC discussed with patient. Bed is in lowest, locked, position, call light within reach, guards at bedside. Will continue to monitor Q1h and PRN. No c/o pain at this time, patient is s/p amputation of first great toe of the R foot and metatarsal.
[2019-09-04 09:00] VITALS: BP 150/78
--- NOTE | 2019-09-04 10:00 | NUR ---
Wound Care at bedside. Wound Vac placed per orders. Patient tolerated well, will continue to monitor.
[2019-09-04] MEDS: InsuLIN REG 1unit/0.01ml Soln (100units/ml) SC SCH ×2 (10:40→22:00)
[2019-09-04] MEDS: INSULIN LANTUS (GLARGINE) 1 /0.01ml (100units/ml) SC SCH (10:41)
--- NOTE | 2019-09-04 10:42 | NUR ---
WOUND CARE NOTE: WOUND CARE TEAM IN TO SEE PATIENT PER WOUND CARE REQUEST. PATIENT ADMITTED TO [facility] FOR OSTEOMYELITIS OF RIGHT GREAT TOE. PATIENT IS S/P AMPUTATION, OPEN, FOR DIABETIC FOOT ULCER. CURRENT LESLEE SCORE IS 21. PHOTOGRAPHS TAKEN FOR POST AMPUTATION REFERENCE. SUTURES ARE INTACT TO THE DORSAL ASPECT OF THE INCISION. PATIENT HAS A LARGE OPEN WOUND MEASURING 8 X 6 X 3.5. SURGEON HAS REQUESTED WOUND VAC PLACEMENT AND TO APPLY WOUND VAC DRESSING AT THIS TIME. OPEN WOUND CAVITY IS BRIGHT RED WITH LIGHT SEROUS DRAINAGE, NO NECROTIC TISSUE NOTED. PERIWOUND IS MILDLY EDEMATOUS WITH RED AND PINK PERIWOUND TISSUE. CLEANED WITH NORMAL SALINE, PATTED DRY WITH STERILE GAUZE. APPLIED CAVILON NO STING BARRIER FILM TO PERIWOUND AND BRIDGE SKIN SITE. COVERED WITH CLEAR FILM DRESSING. PACKED WOUND BED BASE WITH WHITE GRANUFOAM, COVERED WITH BLACK GRANUFOAM. CREATED BRIDGE ACROSS DORSAL FOOT TO ANTERIOR ANKLE, COVERED WITH CLEAR DRAPE, APPLIED TRAC PAD, CONNECTED DRESSING TO ULTA WOUND VAC. INITIATED VAC SET TO 125 MMhG CONTINUOUS, GOOD SUCTION, NO LEAKS DETECTED. FURTHER COVERED DRESSING WITH KNIT STOCKINETTE. PATIENT TOLERATED WELL. ELEVATED FOOT UP ON PILLOWS FOR EDEMA CONTROL. RECOMMEND: Q 3 DAY/PRN DRESSING CHANGE BY BEDSIDE NURSE. DIETARY CONSULT. ELEVATE FOOT UP ON PILLOWS FOR EDEMA CONTROL. NO WEIGHT BEARING ON AFFECTED FOOT. SKIN/WOUND CARE PLAN. CONTINUED MONITORING BY WOUND CARE TEAM. Addendum: 09/04/19 at 1810 by DERRICK HOLLY RN RN Amended: Links added.
[2019-09-04] MEDS: ASPirin 81 mg TAB PO SCH (10:43)
[2019-09-04] MEDS: CLOPIDOGREL BISULFATE 75 MG TAB PO SCH (10:43)
[2019-09-04] MEDS: DULoxetine HCL 30 MG CAP PO SCH (10:43)
[2019-09-04] MEDS: LISINOPRIL 10 MG TAB PO SCH (10:43)
[2019-09-04] MEDS: ENOXAPARIN SOD 40 MG/0.4 ML SYRINGE SC SCH (10:44)
[2019-09-04] MEDS: SODIUM CHLOR 0.9% PF (SALINE LOCK) 10ML VIAL/SYR IV SCH ×2 (10:44→22:26)
[2019-09-04] MEDS: MEROPENEM 1GM IVPB 100 ML IV SCH ×2 (10:44→18:24)
[2019-09-04] MEDS: ACCU-CHEK COMFORT CURVE STRIP VI SCH ×2 (10:45→22:26)
[2019-09-04 13:00] VITALS: BP 143/73
[2019-09-04 17:00] VITALS: BP 126/70
[2019-09-04 22:00] VITALS: BP 105/57
[2019-09-04] MEDS: ATORVASTATIN 20 MG TAB PO SCH (22:26)
[2019-09-05] MEDS: MEROPENEM 1GM IVPB 100 ML IV SCH ×2 (02:45→10:01)
[2019-09-05 05:00] VITALS: BP 137/72
[2019-09-05 06:58] LABS: Basophils % (auto) 0.5 % (0.0-2.0); Eosinophils # (auto) 0.1 10 ^3/uL (0-0.8); Hemoglobin 9.1 g/dL (13.5-17.5); Lymphocytes # (auto) 1.2 10 ^3/uL (0.4-5.4); Neutrophils # (auto) 8.4 10 ^3/uL (1.6-8.6); Red Cell Distribution Width 14.3 % (11.8-14.3); White Blood Cell 10.6 10^3/uL (4.4-10.8)
[2019-09-05 07:00] LABS: Basophils # (auto) 0.1 10 ^3/uL (0-0.2); Eosinophils % (auto) 0.6 % (0.0-7.0); Hematocrit 26.7 % (41.0-53.0); Lymphocytes % (auto) 11.2 % (10.0-50.0); Mean Corpuscular Hemoglobin 28.8 pg (28.0-32.0); Mean Corpuscular Hgb Conc. 34.1 g/dL (32.0-36.0); Mean Corpuscular Volume 84.3 fL (80.0-100.0); Monocytes # (auto) 0.8 10 ^3/uL (0-1.3); Neutrophils % (auto) 79.7 % (37.0-80.0); Platelet Count (auto) 482 10^3/uL (140-450); Red Blood Cells 3.17 10^6/uL (4.5-5.90)
--- NOTE | 2019-09-05 08:30 | NUR ---
Opening Note Assumed care of patient, he is A & O x4, no s/s of distress at this time. POC discussed with patient. Bed is in lowest, locked, position, call light within reach, guards at bedside. Will continue to monitor Q1h and PRN. No c/o pain at this time, patient is s/p amputation of first great toe of the R foot and metatarsal 09/03/19. Patient states "I am feeling pretty good at this time." Wound Vac to the R foot, patent and draining at 125mmhg at this time, no drainage noted at this time.
[2019-09-05 09:00] VITALS: BP 136/68
[2019-09-05] MEDS: INSULIN LANTUS (GLARGINE) 1 /0.01ml (100units/ml) SC SCH (09:54)
[2019-09-05] MEDS: InsuLIN REG 1unit/0.01ml Soln (100units/ml) SC SCH ×2 (10:00→21:43)
[2019-09-05] MEDS: SODIUM CHLOR 0.9% PF (SALINE LOCK) 10ML VIAL/SYR IV SCH ×2 (10:01→21:38)
[2019-09-05] MEDS: LISINOPRIL 10 MG TAB PO SCH (10:02)
[2019-09-05] MEDS: ENOXAPARIN SOD 40 MG/0.4 ML SYRINGE SC SCH (10:02)
[2019-09-05] MEDS: ASPirin 81 mg TAB PO SCH (10:02)
[2019-09-05] MEDS: DULoxetine HCL 30 MG CAP PO SCH (10:02)
[2019-09-05] MEDS: CLOPIDOGREL BISULFATE 75 MG TAB PO SCH (10:03)
[2019-09-05] MEDS: ACCU-CHEK COMFORT CURVE STRIP VI SCH ×2 (10:03→21:43)
--- NOTE | 2019-09-05 10:15 | NUR ---
WOUND CARE NOTE: Wound care in for daily monitoring of wound vac functioning. Patient continue resting in bed in Rm. 244-5. Patient is awake, alert and oriented. He's in no stated pain at this time. Rt foot wound vac dressing is C/D/I and attached to Ulta Vac, functioning well at 125mm Hg continuous with no leak detected. About 25 mL serosanguineous drainage noted in Vacutainer. Wound care team will continue to monitor.
--- NOTE | 2019-09-05 12:46 | NUR ---
Nutrition Follow-up/CONSULT Notes Wt.: 76.6 kg (09/04/19) Pt is s/p R great toe amputation. Currently on Cardiac diet with good appetite aeb avg 100% PO intake. Will continue to monitor pertinent labs and reassess nutrient needs prn Est. Energy Needs: 5053-3449 kcal (25-30 kcal/kg BW). Est. Protein Needs: 91-114 gms/day (1.2-1.5 gms/kg BW). Labs 08/25: Na 133 L, BUN 27 H, Glucose 65 L, Ca 8.4 L Skin: Michael scale 21, low risk, s/p R great toe amputation per hotel controller. PES: ALtered nutrition related lab values r/t current medical condition aeb hyperglycemia, hyponatremia Will continue to monitor PO intake, pertinent labs, skin status and weight trends. F/u in 3 to 5 days. Additional Recommendation: 1) Suggest providing Vitamin C 500mg BID and daily MVi with minerals tab for improved wound healing. 2) If Albumin continues trending down, suggest Prostat 1 pkt BID. 3) Continue current plan of care.
[2019-09-05 13:00] VITALS: BP 119/68
[2019-09-05 17:00] VITALS: BP 123/68
[2019-09-05] MEDS: VANCOMYCIN 1GM/250ML 250 ML IV SCH (17:16)
[2019-09-05] MEDS: MEROPENEM 1 GM/50 ML IV SCH ×2 (18:48)
[2019-09-05] MEDS: [UNRECOGNIZED DRUG - OTHER] IV SCH ×2 (18:48)
[2019-09-05] MEDS: ATORVASTATIN 20 MG TAB PO SCH (21:38)
[2019-09-05 21:55] VITALS: BP 124/66
[2019-09-06] MEDS: MEROPENEM 1 GM/50 ML IV SCH ×6 (02:13→18:23)
[2019-09-06] MEDS: [UNRECOGNIZED DRUG - OTHER] IV SCH ×6 (02:13→18:23)
--- NOTE | 2019-09-06 02:45 | NUR ---
PATIENT REQUESTED TO CHECK BLOOD SUGAR SINCE HE IS FEELING DIZZY, BLOOD SUGAR CHECKED AT 0221 WAS 56, GIVEN APPLE JUICE AND SUSANNA CRACKERS REQUESTED. RECHECKED BLOOD SUGAR AND IT IS 61. GIVEN ANOTHER APPLE JUICE AND SUSANNA CRACKERS AND WILL RECHECK.
--- NOTE | 2019-09-06 03:07 | NUR ---
LATEST BLOOD SUGAR IS 76. PATIENT IS FEELING BETTER.
[2019-09-06 05:00] VITALS: BP 108/61
--- NOTE | 2019-09-06 06:22 | NUR ---
LATEST BLOOD SUGAR THIS MORNING IS 120, PAGED DR. GALVAN TO NOTIFY OF HYPOGLYCEMIA EPISODE.
--- NOTE | 2019-09-06 06:30 | NUR ---
SPOKE WITH DR. GALVAN, CHANGED LANTUS ORDER TO 60UNITS LANTUS DAILY.
--- NOTE | 2019-09-06 08:00 | NUR ---
Opening Shift Note Assumed care of patient, awake and alert. Respiratory even and unlabored. No S/S of distress/SOB or pain. Right foot wound continue to wound vac, patient tolerated well. No s/s of hyperglycemia or hypoglycemia noted. Skin is warm and dry to touch. Instructed on POC and to call for assist PRN, will continue to monitor for changes Q1hr and PRN.
--- NOTE | 2019-09-06 08:00 | NUR ---
Offer patient laxative and prune juices due to last BP 08/28, patient refused. Explained risks and benefits, patient still refused. Will continue to monitor.
--- NOTE | 2019-09-06 08:40 | NUR ---
WOUND CARE NOTE: Wound care in for daily monitoring of wound vac functioning. Patient continue resting in bed in Rm. 244-5. Patient is awake, alert and oriented. He's in no stated pain at this time. Rt foot wound vac dressing is C/D/I and attached to Ulta Vac, functioning well at 125mm Hg continuous with no leak detected. Past 25 mL serosanguineous drainage noted in Vacutainer. Patient's R foot wound vac dressing change schedule to be change tomorrow. Wound care team will continue to monitor.
[2019-09-06 08:59] VITALS: BP 116/63
[2019-09-06] MEDS: CLOPIDOGREL BISULFATE 75 MG TAB PO SCH (09:35)
[2019-09-06] MEDS: DULoxetine HCL 30 MG CAP PO SCH (09:35)
[2019-09-06] MEDS: LISINOPRIL 10 MG TAB PO SCH (09:35)
[2019-09-06] MEDS: ENOXAPARIN SOD 40 MG/0.4 ML SYRINGE SC SCH (09:35)
[2019-09-06] MEDS: ASPirin 81 mg TAB PO SCH (09:35)
[2019-09-06] MEDS: SODIUM CHLOR 0.9% PF (SALINE LOCK) 10ML VIAL/SYR IV SCH ×2 (09:36→21:51)
[2019-09-06] MEDS: ACCU-CHEK COMFORT CURVE STRIP VI SCH ×2 (09:36→21:58)
[2019-09-06] MEDS: INSULIN LANTUS (GLARGINE) 1 /0.01ml (100units/ml) SC SCH (09:36)
[2019-09-06] MEDS: InsuLIN REG 1unit/0.01ml Soln (100units/ml) SC SCH ×2 (09:37→22:01)
[2019-09-06] MEDS ORDERED: [UNRECOGNIZED DRUG - OTHER] IV SCH ×2 (12:00)
[2019-09-06] MEDS ORDERED: MEROPENEM 1 GM/50 ML IV SCH ×2 (12:00)
[2019-09-06 13:45] VITALS: BP 132/65
[2019-09-06] MEDS: VANCOMYCIN 1GM/250ML 250 ML IV SCH (16:51)
[2019-09-06 16:59] VITALS: BP 158/88
[2019-09-06] MEDS: ATORVASTATIN 20 MG TAB PO SCH (21:51)
[2019-09-06 22:00] VITALS: BP 154/78
[2019-09-07] MEDS: [UNRECOGNIZED DRUG - OTHER] IV SCH ×6 (02:14→17:44)
[2019-09-07] MEDS: MEROPENEM 1 GM/50 ML IV SCH ×6 (02:14→17:44)
[2019-09-07 05:39] VITALS: BP 155/84
--- NOTE | 2019-09-07 08:05 | NUR ---
Opening Shift Note Assumed care of patient, awake and alert. No S/S of distress/SOB or pain. Skin is warm and dry to touch, no s/s of hyperglycemia or hypoglycemia noted. Wound to right foot connected to wound vac, functioning well. Instructed on POC and to call for assist PRN, will continue to monitor for changes Q1hr and PRN.
--- NOTE | 2019-09-07 08:42 | NUR ---
Offer patient pain medication for changing wound dressing, patient refused.
[2019-09-07 09:00] VITALS: BP 131/76
[2019-09-07] MEDS: InsuLIN REG 1unit/0.01ml Soln (100units/ml) SC SCH ×2 (10:00→21:56)
[2019-09-07] MEDS: CLOPIDOGREL BISULFATE 75 MG TAB PO SCH (10:08)
[2019-09-07] MEDS: ASPirin 81 mg TAB PO SCH (10:08)
[2019-09-07] MEDS: LISINOPRIL 10 MG TAB PO SCH (10:09)
[2019-09-07] MEDS: DULoxetine HCL 30 MG CAP PO SCH (10:09)
[2019-09-07] MEDS: SODIUM CHLOR 0.9% PF (SALINE LOCK) 10ML VIAL/SYR IV SCH ×2 (10:09→21:54)
[2019-09-07] MEDS: ACCU-CHEK COMFORT CURVE STRIP VI SCH ×2 (10:10→21:54)
[2019-09-07] MEDS: ENOXAPARIN SOD 40 MG/0.4 ML SYRINGE SC SCH (10:10)
--- NOTE | 2019-09-07 10:58 | NUR ---
WOUND CARE NOTE: Wound care in to see patient change R foot wound vac dressing and reevaluation of patient R foot wound. Patient continue resting in bed in Rm. 244-5. Patient is awake,alert and oriented, denies any pain. Pain medication offered by bedside nurse prior dressing change but patient refused and states he has no pain. Removed patient's R foot wound vac dressing. Patient is four days s/p amputation of R great toe with metatarsal head resection. patient's R dorsal foot has sutured incision measuring 7cm. To distal medial R foot (amputation site) is open full thickness wound measuring 6x5.5x3cm. Wound bed is red with yellow slough/adipose tissue,eugene wound is pink, minimal serosanguineous drainage noted,no odor noted. Cleansed wound with wound cleanser,patted dry with gauze. New photograph of wound are taken for reference. Applied skin protectant to periwound, allow to air dry.Applied transparent drape to periwound. Applied one small piece of white foam at inner wound base, leaving tail. Fill wound cavity with one piece black granu foam forming a bridge to dorsal aspect of R foot. Secured foam dressing with sterile transparent drape. Secured R foot wound dressing with stockinette. Applied trac pad and attached with Ulta vac. Continue wound vac at prescribed setting of 125 mmHg continuos therapy. Good suction noted, no leak detected. Patient tolerated well. Elevated patient's R foot on pillow. RECOMMENDATION: Continuation of all wound care orders prescribed by MD, continue with skin/wound plan of care,continue monitoring by wound care while patient is hospitalized. Addendum: 09/07/19 at 1619 by Isabela Rashid RN Amended: Links added.
[2019-09-07] MEDS: INSULIN LANTUS (GLARGINE) 1 /0.01ml (100units/ml) SC SCH (11:03)
--- NOTE | 2019-09-07 11:04 | NUR ---
Wound nurse at bedside, wound dressing changed and connected to wound vac.
[2019-09-07 13:00] VITALS: BP 146/83
[2019-09-07] MEDS: VANCOMYCIN 1GM/250ML 250 ML IV SCH (14:27)
[2019-09-07 17:00] VITALS: BP 128/72
[2019-09-07] MEDS: ATORVASTATIN 20 MG TAB PO SCH (21:54)
[2019-09-07 22:00] VITALS: BP 136/68
--- NOTE | 2019-09-08 02:11 | NUR ---
Patient was diaphoretic, requested to have blood sugar checked. At 0140, blood sugar was 59, given apple juice and jose juan crackers. Rechecked blood sugar and it went up to 81. Patient is feeling better. will keep monitoring.
[2019-09-08] MEDS: [UNRECOGNIZED DRUG - OTHER] IV SCH ×6 (02:23→17:39)
[2019-09-08] MEDS: MEROPENEM 1 GM/50 ML IV SCH ×6 (02:23→17:39)
[2019-09-08 05:00] VITALS: BP 154/85
--- NOTE | 2019-09-08 06:31 | NUR ---
LATEST BLOOD SUGAR IS 98. PAGED DR. GALVAN TO NOTIFY OF HYPOGLYCEMIA EPISODE. WAITING FOR CALL BACK.
--- NOTE | 2019-09-08 06:48 | NUR ---
SPOKE WITH DR. GALVAN REGARDING PATIENT'S HYPOGLYCEMIA. ORDERED TO GIVE PATIENT BEDTIME SNACK TO PREVENT HYPOGLYCEMIA AFTER MIDNIGHT. NO CHANGE ON DIET AT THIS TIME.
[2019-09-08 08:00] VITALS: BP 144/93
[2019-09-08 08:35] VITALS: BP 144/93
[2019-09-08] MEDS: VANCOMYCIN 1GM/250ML 250 ML IV SCH (08:48)
[2019-09-08] MEDS: InsuLIN REG 1unit/0.01ml Soln (100units/ml) SC SCH ×2 (10:00→21:55)
--- NOTE | 2019-09-08 10:00 | NUR ---
WOUND CARE NOTE: Wound care in for daily monitoring of wound vac functioning. Patient continue resting in bed in Rm. 244-5. Patient is awake, alert and oriented. He's in no stated pain at this time. Rt foot wound vac dressing is C/D/I and attached to Ulta Vac, functioning well at 125mm Hg continuous with no leak detected. Past 50 mL serosanguineous drainage noted in Vacutainer. Will continue to monitor.
[2019-09-08] MEDS: SODIUM CHLOR 0.9% PF (SALINE LOCK) 10ML VIAL/SYR IV SCH ×2 (10:15→21:55)
[2019-09-08] MEDS: ASPirin 81 mg TAB PO SCH (10:15)
[2019-09-08] MEDS: LISINOPRIL 10 MG TAB PO SCH (10:16)
[2019-09-08] MEDS: DULoxetine HCL 30 MG CAP PO SCH (10:16)
[2019-09-08] MEDS: ACCU-CHEK COMFORT CURVE STRIP VI SCH ×2 (10:16→21:55)
[2019-09-08] MEDS: CLOPIDOGREL BISULFATE 75 MG TAB PO SCH (10:16)
[2019-09-08] MEDS: INSULIN LANTUS (GLARGINE) 1 /0.01ml (100units/ml) SC SCH (10:17)
[2019-09-08 13:00] VITALS: BP 144/82
--- NOTE | 2019-09-08 14:00 | NUR ---
PER ORDER FROM DR ALFREDO, PROVIDED PATIENT WITH POST OP SHOE. SHOE BEDSIDE WITH PATIENT
[2019-09-08 16:59] VITALS: BP 126/70
[2019-09-08] MEDS: ATORVASTATIN 20 MG TAB PO SCH (21:55)
[2019-09-08 22:00] VITALS: BP 124/73
--- NOTE | 2019-09-09 02:00 | NUR ---
PATIENT'S BEDTIME BLOOD SUGAR WAS 58, BEDTIME SNACK GIVEN, WHEN BLOOD SUGAR RECHECKED IT WAS 55, ADDITIONAL SNACK (APPLE JUICE/SUSANNA CRACKERS) GIVEN, WHEN RECHECKED IT WENT UP TO 70, FOLLOW UP RECHECK AT 0153 WAS 103.
[2019-09-09] MEDS: MEROPENEM 1 GM/50 ML IV SCH ×6 (02:02→17:45)
[2019-09-09] MEDS: [UNRECOGNIZED DRUG - OTHER] IV SCH ×6 (02:02→17:45)
[2019-09-09 05:00] VITALS: BP 133/70
[2019-09-09 05:52] LABS: Basophils # (auto) 0.1 10 ^3/uL (0-0.2); Basophils % (auto) 0.9 % (0.0-2.0); Eosinophils # (auto) 0.1 10 ^3/uL (0-0.8); Eosinophils % (auto) 0.9 % (0.0-7.0); Hematocrit 26.1 % (41.0-53.0); Hemoglobin 8.6 g/dL (13.5-17.5); Lymphocytes # (auto) 2.3 10 ^3/uL (0.4-5.4); Lymphocytes % (auto) 30.2 % (10.0-50.0); Mean Corpuscular Hemoglobin 27.9 pg (28.0-32.0); Mean Corpuscular Volume 84.6 fL (80.0-100.0); Monocytes # (auto) 0.7 10 ^3/uL (0-1.3); Monocytes % (auto) 8.6 % (0.0-12.0); Neutrophils # (auto) 4.6 10 ^3/uL (1.6-8.6); Neutrophils % (auto) 59.4 % (37.0-80.0); Nucleated Red Blood Cells % 0.1 %; Platelet Count (auto) 414 10^3/uL (140-450); Red Blood Cells 3.08 10^6/uL (4.5-5.90); Red Cell Distribution Width 14.8 % (11.8-14.3); White Blood Cell 7.8 10^3/uL (4.4-10.8)
[2019-09-09 06:13] LABS: Albumin 1.8 g/dL (3.4-5.0); BUN/Creatinine Ratio 23.2; Calcium 8.6 mg/dL (8.5-10.1); Potassium 5.1 mmol/L (3.5-5.1)
[2019-09-09 06:15] LABS: Bilirubin, Total 0.3 mg/dL (0.2-1.0); Total Protein 7.1 g/dL (6.4-8.2)
[2019-09-09] MEDS: VANCOMYCIN 1GM/250ML 250 ML IV SCH ×2 (06:27→22:42)
[2019-09-09 08:00] VITALS: BP 130/74
[2019-09-09 09:00] VITALS: BP 130/74
[2019-09-09] MEDS: SODIUM CHLOR 0.9% PF (SALINE LOCK) 10ML VIAL/SYR IV SCH ×2 (09:53→22:42)
[2019-09-09] MEDS: ASPirin 81 mg TAB PO SCH (09:53)
[2019-09-09] MEDS: CLOPIDOGREL BISULFATE 75 MG TAB PO SCH (09:54)
[2019-09-09] MEDS: DULoxetine HCL 30 MG CAP PO SCH (09:54)
[2019-09-09] MEDS: LISINOPRIL 10 MG TAB PO SCH (09:55)
[2019-09-09] MEDS: InsuLIN REG 1unit/0.01ml Soln (100units/ml) SC SCH ×2 (09:55→22:43)
[2019-09-09] MEDS: INSULIN LANTUS (GLARGINE) 1 /0.01ml (100units/ml) SC SCH (09:55)
[2019-09-09] MEDS: ACCU-CHEK COMFORT CURVE STRIP VI SCH ×2 (10:07→22:42)
--- NOTE | 2019-09-09 10:45 | NUR ---
WOUND CARE NOTE: IN TO ASSESS FUNCTION OF WOUND VAC DRESSING TO AMPUTATION OF RIGHT # 1 TOE/FOOT. DRESSING IS INTACT, GOOD SUCTION, NO LEAKS DETECTED. VAC IS SET TO 125 MM/HG CONTINUOUS. WOUND CARE TEAM WILL CONTINUE TO MONITOR.
[2019-09-09 12:42] VITALS: BP 130/65
[2019-09-09 16:53] VITALS: BP 110/63
--- NOTE | 2019-09-09 19:50 | NUR ---
Opening Shift Note Assumed care of patient, awake and alert. No S/S of distress/SOB or pain. Instructed on POC and to call for assist PRN. Bed in lowest locked position, call light within reach, side rails up x2, fall precautions in place. Will continue to monitor for changes Q1hr and PRN.
[2019-09-09 21:48] VITALS: BP 134/68
[2019-09-09] MEDS: ATORVASTATIN 20 MG TAB PO SCH (22:42)
--- NOTE | 2019-09-10 02:15 | NUR ---
PICC Line Dressing PICC line dressing change done with a sterile technique. Patient tolerated well. Continue care.
[2019-09-10] MEDS: [UNRECOGNIZED DRUG - OTHER] IV SCH ×6 (02:19→17:53)
[2019-09-10] MEDS: MEROPENEM 1 GM/50 ML IV SCH ×6 (02:19→17:53)
[2019-09-10 04:52] VITALS: BP 115/57
[2019-09-10 08:00] VITALS: BP 131/74
[2019-09-10 08:59] VITALS: BP 131/74
[2019-09-10] MEDS: SODIUM CHLOR 0.9% PF (SALINE LOCK) 10ML VIAL/SYR IV SCH ×2 (09:42→21:49)
[2019-09-10] MEDS: DULoxetine HCL 30 MG CAP PO SCH (09:43)
[2019-09-10] MEDS: CLOPIDOGREL BISULFATE 75 MG TAB PO SCH (09:43)
[2019-09-10] MEDS: ASPirin 81 mg TAB PO SCH (09:43)
[2019-09-10] MEDS: LISINOPRIL 10 MG TAB PO SCH (09:44)
[2019-09-10] MEDS: INSULIN LANTUS (GLARGINE) 1 /0.01ml (100units/ml) SC SCH (09:44)
[2019-09-10] MEDS: InsuLIN REG 1unit/0.01ml Soln (100units/ml) SC SCH ×2 (09:44→21:50)
[2019-09-10] MEDS: ACCU-CHEK COMFORT CURVE STRIP VI SCH ×2 (09:46→21:50)
--- NOTE | 2019-09-10 11:17 | NUR ---
Nutrition Follow-up Notes Wt.: 79.5 kg Pt currently on Cardiac diet with good appetite aeb avg 96% PO intake over 7 meals. Will continue to monitor pertinent labs and reassess nutrient needs prn. Est. Energy Needs: 0702-7889 kcal (25-30 kcal/kg BW). Est. Protein Needs: 91-114 gms/day (1.2-1.5 gms/kg BW). Labs 09/08: Na 134 L, BUN 26 H, Glucose 65 L, anion gap 4 L, AST 56 H, ALT 62 H, albumin 1.8 L, POC 123 H Skin: Michael scale 20, low risk, R great toe amputation dry & intact per technical mgr. PES: ALtered nutrition related lab values r/t current medical condition aeb hyperglycemia, hyponatremia Will continue to monitor PO intake, pertinent labs, skin status and weight trends. F/u in 3 to 5 days. Additional Recommendation: 1) Suggest providing Vitamin C 500mg BID and daily MVi with minerals tab for improved wound healing. 2) If Albumin continues trending down, suggest Prostat 1 pkt BID. 3) Continue current plan of care.
--- NOTE | 2019-09-10 12:02 | NUR ---
WOUND CARE NOTE: Wound care in to see patient to change R foot wound dressing and for reevaluation of R foot wound. Patient continue resting in bed in Rm. 244-5. Patient is awake,alert and oriented, denies any pain. Pain refused pain medication offered by bedside nurse prior dressing change. Removed patient's R foot wound vac dressing. Patient's R Foot wound s/p amputation of R great toe with metatarsal head resection, remain the same. R medial foot wound measuring 6x5 x2.5cm. Wound bed is red with yellow slough/adipose tissue,eugene wound is pink, minimal serosanguineous drainage noted,no odor noted. Cleansed wound with wound cleanser;patted dry with sterile gauze; New photograph of wound are taken for reference. Applied skin protectant to periwound; allow to air dry; applied transparent drape to periwound. Applied one small piece of white foam at inner wound base, leaving tail. Fill wound cavity with one piece black granu foam, another black foam applied forming a bridge to R lower leg. Secured foam dressing with sterile transparent drape. Applied trac pad and attached with Ulta vac. Secured R foot wound dressing with stockinette. Continue wound vac at prescribed setting of 125 mmHg continuos therapy. Good suction noted, no leak detected. Patient tolerated well. Elevated patient's R foot on pillow. RECOMMENDATION: Continuation of all wound care orders prescribed by MD, continue with skin/wound plan of care,continue monitoring by wound care while patient is hospitalized. Addendum: 09/10/19 at 1502 by Isabela Rashid RN Amended: Links added.
[2019-09-10 13:00] VITALS: BP 154/83
--- NOTE | 2019-09-10 13:50 | NUR ---
DR GALVAN ON UNIT. INFORMED DOCTOR OF PATIENTS POTASSIUM OF 5.1. NO NEW ORDERS RECEIVED.
[2019-09-10] MEDS: VANCOMYCIN 1GM/250ML 250 ML IV SCH (13:51)
[2019-09-10 17:15] VITALS: BP 116/55
[2019-09-10 21:27] VITALS: BP 112/62
[2019-09-10] MEDS: ATORVASTATIN 20 MG TAB PO SCH (21:49)
[2019-09-11] MEDS: [UNRECOGNIZED DRUG - OTHER] IV SCH ×6 (02:03→18:16)
[2019-09-11] MEDS: MEROPENEM 1 GM/50 ML IV SCH ×6 (02:03→18:16)
--- NOTE | 2019-09-11 03:10 | NUR ---
Low Blood sugar Patient called to report that his glucose was low. He was diaphoretic and shaky. Glucose check was 47 and repeat was 44. Gave patient juice boxes x 3, jose juan crackers x 2 and a sandwich. Will recheck and continue to monitor. Signed: 09/11/19 at 0409 by SN PETE <Co-Signature Required> Co-Signed: 09/11/19 at 408 by COURTNEY CASTRO OCA, RN Addendum: 09/11/19 at 0410 by SN PETE [id number] - Blood sugar recheck at 103 Signed: 09/11/19 at 0410 by SN PETE <Co-Signature Required> Co-Signed: 09/11/19 at 0410 by COURTNEY CASTRO OCA, RN
[2019-09-11 04:45] VITALS: BP 139/81
[2019-09-11] MEDS: VANCOMYCIN 1GM/250ML 250 ML IV SCH ×2 (06:42→22:22)
[2019-09-11 08:00] VITALS: BP 131/74
--- NOTE | 2019-09-11 08:00 | NUR ---
ASSESSMENT NOTE PT IS ALERT ORIENTED X4, RESTING IN BED COMFORTABLY NO DISTRESS NOTED, PT HAS WOUND VACUUM ON HIS RT FOOT DUE TO RT TOE AMPUTATION, ABLE TO SELF REPOSITION AND VERBALIS HIS DEMANDS, PAIN 0/10 AT THIS TIME, CALL LIGHT WITHIN REACH
--- NOTE | 2019-09-11 08:15 | NUR ---
WOUND CARE NOTE: Wound care in for daily monitoring of wound vac functioning. Patient continue resting in bed in Rm. 244-5. Patient is awake, alert and oriented. He's in no stated pain at this time. Rt foot wound vac dressing is C/D/I and remain attached to Ulta Vac, functioning well at prescribed setting of 125mm Hg continuous. Good seal noted, no leak detected. 100 mL serosanguineous drainage noted in Vacutainer. Dressing recently changed yesterday. Next dressing change due 09/13/19. Will continue to monitor.
[2019-09-11 09:00] VITALS: BP 147/84
[2019-09-11] MEDS: DULoxetine HCL 30 MG CAP PO SCH (09:00)
[2019-09-11] MEDS: ASPirin 81 mg TAB PO SCH (09:00)
[2019-09-11] MEDS: CLOPIDOGREL BISULFATE 75 MG TAB PO SCH (09:00)
[2019-09-11] MEDS: SODIUM CHLOR 0.9% PF (SALINE LOCK) 10ML VIAL/SYR IV SCH ×2 (09:00→22:19)
[2019-09-11] MEDS: LISINOPRIL 10 MG TAB PO SCH (09:01)
[2019-09-11] MEDS: InsuLIN REG 1unit/0.01ml Soln (100units/ml) SC SCH ×2 (09:06→22:00)
[2019-09-11] MEDS: INSULIN LANTUS (GLARGINE) 1 /0.01ml (100units/ml) SC SCH ×2 (09:15→10:00)
[2019-09-11] MEDS: ACCU-CHEK COMFORT CURVE STRIP VI SCH ×2 (10:00→22:22)
--- NOTE | 2019-09-11 10:00 | NUR ---
LANTUS INSULIN PT REFUSED
[2019-09-11 13:02] VITALS: BP 179/86
[2019-09-11 17:00] VITALS: BP 160/88
[2019-09-11 21:47] VITALS: BP 126/62
[2019-09-11] MEDS: ATORVASTATIN 20 MG TAB PO SCH (22:22)
[2019-09-12] MEDS: [UNRECOGNIZED DRUG - OTHER] IV SCH ×6 (02:20→19:05)
[2019-09-12] MEDS: MEROPENEM 1 GM/50 ML IV SCH ×6 (02:20→19:05)
[2019-09-12 05:34] VITALS: BP 134/74
[2019-09-12 08:10] VITALS: BP 123/67
--- NOTE | 2019-09-12 08:15 | NUR ---
Opening Shift Note Assumed care of patient, awake and alert x4. No S/S of distress/SOB or pain. Instructed on POC and to call for assist PRN. Bed at lowest locked position and call light within reach. Will continue to monitor for changes Q1hr and PRN.
[2019-09-12 09:01] VITALS: BP 123/67
[2019-09-12] MEDS: InsuLIN REG 1unit/0.01ml Soln (100units/ml) SC SCH ×2 (10:00→22:29)
[2019-09-12] MEDS: INSULIN LANTUS (GLARGINE) 1 /0.01ml (100units/ml) SC SCH (10:00)
--- NOTE | 2019-09-12 10:04 | NUR ---
Dr. Osman at bedside.
--- NOTE | 2019-09-12 10:10 | NUR ---
ACCU CHECK Patient's blood sugar check is 276. Patient is refusing Insulin . Patient has been educated on Insulin medication. Patient verbalizes understanding and is refusing all insulin.
[2019-09-12] MEDS: SODIUM CHLOR 0.9% PF (SALINE LOCK) 10ML VIAL/SYR IV SCH ×2 (10:44→22:29)
[2019-09-12] MEDS: ASPirin 81 mg TAB PO SCH (10:44)
[2019-09-12] MEDS: LISINOPRIL 10 MG TAB PO SCH (10:45)
[2019-09-12] MEDS: DULoxetine HCL 30 MG CAP PO SCH (10:45)
[2019-09-12] MEDS: CLOPIDOGREL BISULFATE 75 MG TAB PO SCH (10:45)
[2019-09-12 13:00] VITALS: BP 134/63
[2019-09-12] MEDS: ACCU-CHEK COMFORT CURVE STRIP VI SCH ×2 (13:54→22:29)
[2019-09-12] MEDS: VANCOMYCIN 1GM/250ML 250 ML IV SCH (13:59)
--- NOTE | 2019-09-12 14:00 | NUR ---
called electric golf cart repairer regarding patient's Wound vac on right foot.
[2019-09-12 16:52] VITALS: BP 145/75
--- NOTE | 2019-09-12 17:00 | NUR ---
WOUND CARE NOTE: WOUND CARE TEAM IN TO SEE PATIENT PER BEDSIDE NURSE ADVISING OF AN ISSUE WITH PATIENT'S WOUND VAC ISSUING AN ALARM AND FAILURE TO MAINTAIN VACUUM. UNABLE TO CORRECT ISSUE, DECIDED TO PERFORM COMPLETE DRESSING CHANGE AT THIS TIME. PREVIOUS DRESSING REMOVED. WOUND BED IS RED WITH NO NECROTIC TISSUE NOTED. PERIWOUND SKIN IS RED AND PINK. NO DRAINAGE NOTED. IRRIGATED WITH NORMAL SALINE, PATTED DRY WITH STERILE GAUZE. CAVILON APPLIED TO PERIWOUND, DRAPE APPLIED TO PERIWOUND. WOUND PACKED WITH WHITE GRANUFOAM, COVERED WITH BLACK GRANUFOAM, COVERED WITH DRAPE. APPLIED TRAC PAD AND ATTACHED TO ULTA VAC. TURNED VAC ON AT 125 mmHg CONTINUOUS VACUUM. DRAPE REINFORCED TO ELIMINATE LEAKS. PATIENT TOLERATED DRESSING CHANGE WELL WITH NO PAIN NOTED BY PATIENT. WOUND CARE WILL CONTINUE TO MONITOR.
--- NOTE | 2019-09-12 19:05 | NUR ---
Closing Note Patient is comfortably sitting up in bed, no c/o pain. No s/s of sob/distress. Bed at lowest locked position and call light within reach. Will endorse care to JENNIFER JIMENEZ. Addendum: 09/12/19 at 1910 by Eve Holguin RN guards at bedside for safety.
[2019-09-12 21:26] VITALS: BP 129/72
[2019-09-12] MEDS: ATORVASTATIN 20 MG TAB PO SCH (22:29)
--- NOTE | 2019-09-13 00:41 | NUR ---
PATIENT REPORTED THAT HIS BLOOD SUGAR FELT LOW. UPON CHECKING HIS SUGAR LEVEL WAS 45. I GAVE HIM 3 JUICES AND A SANDWICH. WILL RECHECK IN 30 MINUTES.
--- NOTE | 2019-09-13 01:25 | NUR ---
RECHECK OF PATIENT BLOOD SUGAR WAS 92. WILL CONTINUE TO MONITOR.
[2019-09-13] MEDS: MEROPENEM 1 GM/50 ML IV SCH ×6 (01:41→17:49)
[2019-09-13] MEDS: [UNRECOGNIZED DRUG - OTHER] IV SCH ×6 (01:41→17:49)
[2019-09-13 05:00] VITALS: BP 146/83
[2019-09-13] MEDS: VANCOMYCIN 1GM/250ML 250 ML IV SCH ×2 (05:39→22:15)
--- NOTE | 2019-09-13 07:01 | NUR ---
pt does not s/s of pain or discomfort. respirations are even and nonlabored. patient is an inmate, and has a federal guard at bedside. bed in low locked position, call light within reach.
[2019-09-13 08:43] VITALS: BP 140/72
[2019-09-13] MEDS: CLOPIDOGREL BISULFATE 75 MG TAB PO SCH (09:48)
[2019-09-13] MEDS: LISINOPRIL 10 MG TAB PO SCH (09:49)
[2019-09-13] MEDS: ASPirin 81 mg TAB PO SCH (09:49)
[2019-09-13] MEDS: DULoxetine HCL 30 MG CAP PO SCH (09:49)
[2019-09-13] MEDS: INSULIN LANTUS (GLARGINE) 1 /0.01ml (100units/ml) SC SCH ×3 (09:50→13:00)
[2019-09-13] MEDS: InsuLIN REG 1unit/0.01ml Soln (100units/ml) SC SCH ×2 (09:50→22:00)
[2019-09-13] MEDS: ACCU-CHEK COMFORT CURVE STRIP VI SCH ×2 (09:51→22:00)
[2019-09-13] MEDS: SODIUM CHLOR 0.9% PF (SALINE LOCK) 10ML VIAL/SYR IV SCH ×2 (09:53→22:15)
--- NOTE | 2019-09-13 10:30 | NUR ---
WOUND CARE NOTE: IN TO ASSESS FUNCTION OF WOUND VAC DRESSING TO THE RIGHT FOOT AT THIS TIME. PATIENT'S VAC IS RUNNING AT 125 MM/HG CONTINUOUS. GOOD SUCTION, NO LEAKS DETECTED. WOUND CARE TEAM WILL CONTINUE TO MONITOR.
[2019-09-13 12:40] VITALS: BP 152/80
[2019-09-13 17:14] VITALS: BP 118/59
--- NOTE | 2019-09-13 19:00 | NUR ---
Opening Shift Note Assumed care of patient, awake and alert. No S/S of distress/SOB or pain. Instructed on POC and to call for assist PRN, will continue to monitor for changes Q1hr and PRN.
[2019-09-13 22:00] VITALS: BP 107/61
[2019-09-13] MEDS: ATORVASTATIN 20 MG TAB PO SCH (22:15)
[2019-09-14] MEDS: MEROPENEM 1 GM/50 ML IV SCH ×6 (02:11→18:14)
[2019-09-14] MEDS: [UNRECOGNIZED DRUG - OTHER] IV SCH ×6 (02:11→18:14)
[2019-09-14 05:00] VITALS: BP 131/74
--- NOTE | 2019-09-14 07:30 | NUR ---
OPENING SHIFT NOTE: PATIENT AWAKE A/O X4. TALKING EXCESSIVELY TO BEDSIDE GUARDS. PATIENT APPEARS ANXIOUS INFORMING THIS RN ON ACCUCHECK SCHEDULE IN THE INSTITUTION. PATIENT REQUESTING BLOOD SUGAR CHECK. READING AT 66, PATIENT HAS JUICE AND IS EATING BREAKFAST. PATIENT UNABLE TO COMPREHEND DIABETIC EDUCATION AT THIS TIME, PATIENT "IS AN EXPERT ON MY BODY. I HAVE BEEN DOING THIS FOR 17 YEARS AND YOU GUYS AREN'T DOING IT RIGHT." UPDATED ON PLAN OF CARE, WOUND VAC IN PLACE AT ORDERED SETTING NO SIGNS OF LEAKS, CALL LIGHT WITHIN REACH, WILL CONTINUE TO MONITOR.
[2019-09-14] MEDS ORDERED: metFORMIN HYDROCHLORIDE 500 MG TAB PO SCH ×2 (08:00→11:30)
[2019-09-14] MEDS: SODIUM CHLOR 0.9% PF (SALINE LOCK) 10ML VIAL/SYR IV SCH ×2 (08:05→22:37)
[2019-09-14] MEDS: DULoxetine HCL 30 MG CAP PO SCH (08:40)
[2019-09-14] MEDS: ASPirin 81 mg TAB PO SCH (08:41)
[2019-09-14] MEDS: LISINOPRIL 10 MG TAB PO SCH (08:44)
[2019-09-14] MEDS: CLOPIDOGREL BISULFATE 75 MG TAB PO SCH (08:45)
[2019-09-14] MEDS: ACCU-CHEK COMFORT CURVE STRIP VI SCH ×2 (08:45→22:00)
[2019-09-14 08:48] VITALS: BP 141/74
[2019-09-14] MEDS: InsuLIN REG 1unit/0.01ml Soln (100units/ml) SC SCH ×2 (10:00→22:00)
[2019-09-14] MEDS: INSULIN LANTUS (GLARGINE) 1 /0.01ml (100units/ml) SC SCH (10:00)
--- NOTE | 2019-09-14 10:20 | NUR ---
PATIENT REFUSING LANTUS AT THIS TIME.
--- NOTE | 2019-09-14 10:25 | NUR ---
LOG PREPARER ROUNDING. SEAL LEAK TO TUBING CONNECTION FIXED.
--- NOTE | 2019-09-14 10:30 | NUR ---
WOUND CARE NOTE: IN TO SEE PATIENT, CHECK FUNCTION OF WOUND VAC DRESSING AT THIS TIME. PATIENT'S TRAC PAD HAS BEEN PULLED AWAY FROM PATIENT'S DRESSING, WITH LESS PRESSURE ON ULTAVAC. REINFORCED DRESSING OVER TRAC PAD WITH DRAPE. GOOD SUCTION, NO LEAKS DETECTED, VAC RUNNING AT 125 MM/HG CONTINUOUS. WOUND CARE TEAM WILL CONTINUE TO MONITOR.
[2019-09-14 13:22] VITALS: BP 130/66
--- NOTE | 2019-09-14 13:44 | NUR ---
PATIENT REQUESTING PT TO AMBULATE IN THE UNIT. PATIENT INFORMED PHYSICAL THERAPY DISCHARGED ON THE August PER PT BOB. PATIENT AMBULATORY WITHOUT ASSISTANCE. PATIENT ENCOURAGED TO AMBULATE, GUARDS AT BEDSIDE AWARE.
[2019-09-14] MEDS: VANCOMYCIN 1GM/250ML 250 ML IV SCH (15:13)
[2019-09-14 16:58] VITALS: BP 142/69
--- NOTE | 2019-09-14 19:05 | NUR ---
CARE ENDORSED TO CAYETANO JIMENEZ.
[2019-09-14 22:00] VITALS: BP 125/73
--- NOTE | 2019-09-14 22:35 | NUR ---
Pt refusing insulin. Glucofage not given. MAR did not allowed. Will ask Pharmacy to reschedule.
[2019-09-14] MEDS: ATORVASTATIN 20 MG TAB PO SCH (22:37)
[2019-09-15] MEDS: MEROPENEM 1 GM/50 ML IV SCH ×6 (02:26→17:50)
[2019-09-15] MEDS: [UNRECOGNIZED DRUG - OTHER] IV SCH ×6 (02:26→17:50)
[2019-09-15 05:00] VITALS: BP 134/78
[2019-09-15] MEDS: VANCOMYCIN 1GM/250ML 250 ML IV SCH ×2 (05:55→22:30)
--- NOTE | 2019-09-15 08:22 | NUR ---
PT REQUESTING BLOOD SUGAR CHECK PER PATIENT "I NEED TO HAVE MY BLOOD SUGAR CHECKED BECAUSE I FEEL LIKE IT IS LOW AND I USUALLY DROP LOW AT NIGHT TIME. PLEASE CHECK IT FOR ME" PT BLOOD SUGAR 141
[2019-09-15 09:00] VITALS: BP 148/87
[2019-09-15] MEDS: InsuLIN REG 1unit/0.01ml Soln (100units/ml) SC SCH ×2 (10:00→22:00)
[2019-09-15] MEDS: metFORMIN HYDROCHLORIDE 850 MG TAB PO SCH ×2 (10:09→22:35)
[2019-09-15] MEDS: CLOPIDOGREL BISULFATE 75 MG TAB PO SCH (10:09)
[2019-09-15] MEDS: SODIUM CHLOR 0.9% PF (SALINE LOCK) 10ML VIAL/SYR IV SCH ×2 (10:09→22:30)
[2019-09-15] MEDS: LISINOPRIL 10 MG TAB PO SCH (10:10)
[2019-09-15] MEDS: ASPirin 81 mg TAB PO SCH (10:10)
[2019-09-15] MEDS: ACCU-CHEK COMFORT CURVE STRIP VI SCH ×2 (10:10→22:00)
[2019-09-15] MEDS: DULoxetine HCL 30 MG CAP PO SCH (10:11)
--- NOTE | 2019-09-15 10:30 | NUR ---
WOUND CARE NOTE: WOUND CARE TEAM IN TO REASSES WOUND S/P AMPUTATION OF RIGHT GREAT TOE AND FOR WOUND VAC DRESSING CHANGE. PATIENT ADMITTED TO [facility] FOR OSTEOMYELITIS OF RIGHT GREAT TOE. PATIENT IS S/P AMPUTATION. OLD WOUND VAC DRESSING REMOVED. SUTURES ARE INTACT TO THE DORSAL ASPECT OF THE INCISION. OPEN WOUND CAVITY IS BRIGHT RED WITH NO DRAINAGE. NO NECROTIC TISSUE NOTED. PERIWOUND IS MILDLY EDEMATOUS WITH RED AND PINK PERIWOUND TISSUE. CLEANSED WOUND WITH NORMAL SALINE, PATTED DRY WITH STERILE GAUZE. APPLIED CAVILON NO STING BARRIER FILM TO PERIWOUND AND BRIDGE SKIN SITE. COVERED WITH CLEAR FILM DRESSING. PACKED WOUND BED BASE WITH WHITE GRANUFOAM, COVERED WITH BLACK GRANUFOAM. CREATED BRIDGE ACROSS DORSAL FOOT COVERED WITH CLEAR DRAPE. APPLIED TRAC PAD, CONNECTED DRESSING TO ULTA WOUND VAC. CONTINUED VAC SETTING TO 125 mmHg CONTINUOUS. GOOD VACUUM OBTAINED WITH NO LEAKS DETECTED. FURTHER COVERED DRESSING WITH KNIT STOCKINETTE. PATIENT TOLERATED WELL. ELEVATED FOOT FOR EDEMA CONTROL. RECOMMEND: CONTINUE Q3DAY/PRN DRESSING CHANGE. DAILY MONITORING BY WOUND CARE TEAM. Addendum: 09/15/19 at 1624 by DERRICK HOLLY RN RN Amended: Links added.
[2019-09-15 11:46] VITALS: BP 101/52
--- NOTE | 2019-09-15 14:57 | NUR ---
Nutrition Follow-up Notes Wt.: 76.5 kg Pt currently on Cardiac diet with good appetite aeb 100% PO intake over 6 meals. Will continue to monitor pertinent labs and reassess nutrient needs prn. Est. Energy Needs: 0635-9423 kcal (25-30 kcal/kg BW). Est. Protein Needs: 91-114 gms/day (1.2-1.5 gms/kg BW). Labs : Glucose 141 H, albumin 1.8 L GI: Last BM noted on 09/14/19 per RN doc Skin: Michael scale 20, low risk, R great toe amputation dry & intact per rn licensed practical. PES: Altered nutrition related lab values r/t current medical condition aeb hyperglycemia, hyponatremia Will continue to monitor PO intake, pertinent labs, skin status and weight trends. F/u in 3 to 5 days. Additional Recommendation: 1) Suggest providing Vitamin C 500mg BID and daily MVi with minerals tab for improved wound healing. 2) If Albumin continues trending down, suggest Prostat 1 pkt BID. 3) Continue current plan of care.
[2019-09-15 17:00] VITALS: BP 135/70
[2019-09-15 22:00] VITALS: BP 114/65
[2019-09-15] MEDS: ATORVASTATIN 20 MG TAB PO SCH (22:30)
[2019-09-16] MEDS: [UNRECOGNIZED DRUG - OTHER] IV SCH ×6 (02:17→17:59)
[2019-09-16] MEDS: MEROPENEM 1 GM/50 ML IV SCH ×6 (02:17→17:59)
[2019-09-16 05:00] VITALS: BP 141/72
[2019-09-16] MEDS: metFORMIN HYDROCHLORIDE 850 MG TAB PO SCH ×2 (07:59→17:59)
[2019-09-16] MEDS: ACCU-CHEK COMFORT CURVE STRIP VI SCH ×2 (08:00→22:19)
[2019-09-16] MEDS: InsuLIN REG 1unit/0.01ml Soln (100units/ml) SC SCH ×2 (08:00→22:00)
--- NOTE | 2019-09-16 08:00 | NUR ---
PT REFUSING INSULIN BS 134. PT STATES "I DONT NEED THE INSULIN BECAUSE OF THE METFORMIN, IF I TAKE BOTH MY BLOOD SUGAR WILL DROP."
--- NOTE | 2019-09-16 08:18 | NUR ---
WOUND CARE NOTE: Wound care in for daily monitoring of wound vac functioning. Patient continue resting in bed in Rm. 244-5. Patient is awake, alert and oriented. He's in no stated pain at this time. Rt foot wound vac dressing is C/D/I, attached to Ulta Vac, functioning well at 125mm Hg continuous as MD prescribed . Good seal noted, no leak detected. 25 mL serosanguineous drainage noted in Vacutainer. Dressing recently changed yesterday. Next dressing change due 09/18/19. Will continue to monitor.
[2019-09-16 08:36] VITALS: BP 108/67
[2019-09-16] MEDS: SODIUM CHLOR 0.9% PF (SALINE LOCK) 10ML VIAL/SYR IV SCH ×2 (09:03→22:17)
[2019-09-16] MEDS: ASPirin 81 mg TAB PO SCH (09:04)
[2019-09-16] MEDS: DULoxetine HCL 30 MG CAP PO SCH (09:04)
[2019-09-16] MEDS: CLOPIDOGREL BISULFATE 75 MG TAB PO SCH (09:04)
[2019-09-16] MEDS: LISINOPRIL 10 MG TAB PO SCH (09:05)
[2019-09-16 13:00] VITALS: BP 122/65
[2019-09-16] MEDS: VANCOMYCIN 1GM/250ML 250 ML IV SCH (13:57)
[2019-09-16 17:00] VITALS: BP 134/79
--- NOTE | 2019-09-16 17:22 | NUR ---
PICC LINE DRESSING CHANGED
--- NOTE | 2019-09-16 19:30 | NUR ---
Opening Shift Note Report received from day shift RN. Assumed care of patient, awake and A&O x4. No S/S of distress/SOB noted and patient denies pain at this time. Wound Vac to right foot in place, secured with no leakage noted. Skin to handcuffed areas intact. Instructed on POC and to call for assist PRN, will continue to monitor for changes Q1hr and PRN.
--- NOTE | 2019-09-16 22:00 | NUR ---
PATIENT REFUSED 2200 INSULIN PER SS FOR A BLOOD GLUCOSE LEVEL OF 247. PATIENT STATES HIS BLOOD SUGAR WILL DROP.
[2019-09-16 22:01] VITALS: BP 144/65
[2019-09-16] MEDS: ATORVASTATIN 20 MG TAB PO SCH (22:17)
[2019-09-17] MEDS: [UNRECOGNIZED DRUG - OTHER] IV SCH ×4 (01:30→10:00)
[2019-09-17] MEDS: MEROPENEM 1 GM/50 ML IV SCH ×4 (01:30→10:00)
[2019-09-17 05:00] VITALS: BP 150/73
[2019-09-17 05:01] VITALS: BP 138/75
[2019-09-17] MEDS: VANCOMYCIN 1GM/250ML 250 ML IV SCH (05:37)
[2019-09-17 07:14] LABS: Basophils # (auto) 0.2 10 ^3/uL (0-0.2); Basophils % (auto) 3.7 % (0.0-2.0); Eosinophils # (auto) 0.1 10 ^3/uL (0-0.8); Eosinophils % (auto) 3.1 % (0.0-7.0); Hematocrit 25.6 % (41.0-53.0); Hemoglobin 8.9 g/dL (13.5-17.5); Lymphocytes # (auto) 1.4 10 ^3/uL (0.4-5.4); Lymphocytes % (auto) 32.3 % (10.0-50.0); Mean Corpuscular Hemoglobin 29.6 pg (28.0-32.0); Mean Corpuscular Hgb Conc. 34.6 g/dL (32.0-36.0); Mean Corpuscular Volume 85.4 fL (80.0-100.0); Monocytes # (auto) 0.4 10 ^3/uL (0-1.3); Monocytes % (auto) 9.3 % (0.0-12.0); Neutrophils # (auto) 2.3 10 ^3/uL (1.6-8.6); Neutrophils % (auto) 51.6 % (37.0-80.0); Nucleated Red Blood Cells % 0.1 %; Platelet Count (auto) 218 10^3/uL (140-450); Red Cell Distribution Width 14.7 % (11.8-14.3); White Blood Cell 4.5 10^3/uL (4.4-10.8)
[2019-09-17 07:35] LABS: Albumin 2.2 g/dL (3.4-5.0); BUN/Creatinine Ratio 22.7; Calcium 8.6 mg/dL (8.5-10.1); Potassium 4.8 mmol/L (3.5-5.1)
[2019-09-17 07:38] LABS: Bilirubin, Total 0.4 mg/dL (0.2-1.0)
[2019-09-17 08:00] VITALS: BP 188/94
[2019-09-17] MEDS: metFORMIN HYDROCHLORIDE 850 MG TAB PO SCH (08:00)
--- NOTE | 2019-09-17 08:00 | NUR ---
Patient refusing medications, care, and answering questions. Patient states, he will only answer to DR Osman. Patient states, medications should be given to him when he wants them, not when they are scheduled ig we are not going to go by his rules. Patient educated on risks of refusing medications and care. Will cont to monitor patient.
[2019-09-17 08:36] VITALS: BP 186/87
--- NOTE | 2019-09-17 09:30 | NUR ---
PATIENT REFUSING MORNING MEDICATIONS. PATIENT STATING HE "IS COOL." THIS NURSE ASKED IF THAT MEANT PATIENT WAS REFUSING AND PATIENT NODDED YES. PATIENT EDUCATED ON THE RISK OF REFUSING MEDICATIONS INCLUDING EDUCATION ON A HIS HIGH BP. PATIENT CONTINUES TO REFUSE STATING "I'LL BE OK" WILL CONT TO MONITOR.
[2019-09-17] MEDS: CLOPIDOGREL BISULFATE 75 MG TAB PO SCH (10:00)
[2019-09-17] MEDS: ASPirin 81 mg TAB PO SCH (10:00)
[2019-09-17] MEDS: ACCU-CHEK COMFORT CURVE STRIP VI SCH (10:00)
[2019-09-17] MEDS: InsuLIN REG 1unit/0.01ml Soln (100units/ml) SC SCH (10:00)
[2019-09-17] MEDS: DULoxetine HCL 30 MG CAP PO SCH (10:00)
[2019-09-17] MEDS: SODIUM CHLOR 0.9% PF (SALINE LOCK) 10ML VIAL/SYR IV SCH (10:00)
[2019-09-17] MEDS: LISINOPRIL 10 MG TAB PO SCH (10:00)
--- NOTE | 2019-09-17 10:00 | NUR ---
WOUND CARE NOTE: IN TO ASSESS FUNCTION OF WOUND VAC TO RIGHT FOOT AT THIS TIME. VAC IS RUNNING AT 125 MM/HG CONTINUOUS. GOOD SUCTION, NO LEAKS DETECTED. WOUND CARE TEAM WILL CONTINUE TO MONITOR.
--- NOTE | 2019-09-17 12:45 | NUR ---
HOSPITALIST AT BEDSIDE MD GALVAN AT BEDSIDE AWARE OF PATIENT STATUS. ORDER FOR DISCHARGE RECEIVED DUE TO PATIENT REFUSING CARE. WILL CARRY OUT NEW ORDERS.
[2019-09-17 13:00] VITALS: BP 141/77
[2019-09-17] MEDS ORDERED: GLIP5TAB12 PO (13:07)
[2019-09-17] MEDS ORDERED: SULF400T11 PO (13:07)
[2019-09-17] MEDS ORDERED: LEVO500T21 PO (13:07)
[2019-09-17 13:21] VITALS: BP 141/77
--- NOTE | 2019-09-17 14:00 | NUR ---
WOUND CARE NOTE: ADVISED BY BEDSIDE NURSE THAT PATIENT HAS BEEN DISCHARGED, AND WILL BE RETURNING BACK TO THE HALFWAY SHORTLY. WOUND VAC DRESSING TO BE DC'D AT THIS TIME. WOUND VAC TURNED OFF. DRESSING REMOVED FROM RIGHT FOOT/HALLUX. DISCHARGE PHOTO TAKEN AT THIS TIME PER PROTOCOL. CLEANSED WOUND WITH NS, PATTED DRY WITH STERILE GAUZE. PACKED WOUND BED WITH MOIST TO DRY DRESSING, SOAKED WITH BETADINE. COVERED WITH MULTIPLE LAYERS OF STERILE 4X4 GAUZE SPONGES. WRAPPED FOOT WITH 2 LARGE KERLIX, STOCKINETTE. PATIENT TOLERATED DRESSING CHANGE WELL, NOTING NO PAIN BY PATIENT. PATIENT TO BE DISCHARGED SHORTLY.
--- NOTE | 2019-09-17 14:08 | NUR ---
Discharge to Care Home Discharge instructions given to guards as ordered. All questions and concerns addressed. Patient verbalized understanding. Medication reconciliation form completed and copy given to patient. PICC line removed with catheter intact, pressure dressing applied. Wound vac removed and wet to dry dressing applied to right toe amputated. Patient escorted out with longterm guards. No distress noted at time of departure.
== END 2019-09-17 14:00 | DRG 239 ==
LOC: ER 14:18 → EDBD 14:18 → EEVIPCON 14:18 → OVERFLOW 14:19 → EAST 17:55
PROVIDERS: ADMIT Internal Medicine; ATTEND Internal Medicine
PROC: 047K3ZZ Dilation of Right Femoral Artery, Percutaneous Approach (ICD-10-PCS; 2019-09-01)
PROC: B41GYZZ Fluoroscopy of Left Lower Extremity Arteries using Other Contrast (ICD-10-PCS; 2019-09-01)
PROC: B41FYZZ Fluoroscopy of Right Lower Extremity Arteries using Other Contrast (ICD-10-PCS; 2019-09-01)
PROC: 02HV33Z Insertion of Infusion Device into Superior Vena Cava, Percutaneous Approach (ICD-10-PCS; 2019-09-02)
PROC: 0Y6M0Z9 Detachment at Right Foot, Partial 1st Ray, Open Approach (ICD-10-PCS; 2019-09-03)
PROC: 0Y6P0Z0 Detachment at Right 1st Toe, Complete, Open Approach (ICD-10-PCS; principal; 2019-09-03 09:46)
DX: E11.52 Type 2 diabetes mellitus with diabetic peripheral angiopathy with gangrene (principal); E43 Unspecified severe protein-calorie malnutrition; A48.0 Gas gangrene; M86.8X7 Other osteomyelitis, ankle and foot; L02.611 Cutaneous abscess of right foot; E11.69 Type 2 diabetes mellitus with other specified complication; E11.65 Type 2 diabetes mellitus with hyperglycemia; I10 Essential (primary) hypertension; E11.621 Type 2 diabetes mellitus with foot ulcer; F32.9 Major depressive disorder, single episode, unspecified; L97.509 Non-pressure chronic ulcer of other part of unspecified foot with unspecified severity; Z98.61 Coronary angioplasty status; Z89.411 Acquired absence of right great toe; Z91.19 Patient's noncompliance with other medical treatment and regimen; Z68.22 Body mass index [BMI] 22.0-22.9, adult; Z72.0 Tobacco use; Z79.4 Long term (current) use of insulin; Z79.84 Long term (current) use of oral hypoglycemic drugs
CPT/HCPCS: 36415; 36569; 37224; 71045; 71046; 73700; 73718; 75716; 80048; 80053; 80202; 81001; 82565; 82962; 85025; 85610; 85730; 86850; 86900; 86901; 87070; 87075; 87076; 87077; 87081; 87186; 87205; 93306; 93926; 96365; 96375; 96379; 97163; 99152; 99153; G0378; J0690; J1815; J2185; J2250; J2405; J2704; J3490; Q9967

== ENCOUNTER 2020-09-17 17:44 | Inpatient (IN) | payer OTHER ==
[~2020-09-17] VITALS: Ht 193 cm; Wt 70.4 kg
[~2020-09-17 17:44] MED LIST: GLIP5TAB12 PO; LEVO500T31 PO; SULF400T11 PO
[2020-09-17] MEDS ORDERED: KETOROLAC TROMETH 30 MG/ML 1ML VIAL IV ONE (20:15)
[2020-09-17 20:48] LABS: Basophils # (auto) 0 10 ^3/uL (0-0.2); Basophils % (auto) 0.4 % (0.0-2.0); Eosinophils # (auto) 0 10 ^3/uL (0-0.8); Eosinophils % (auto) 0.1 % (0.0-7.0); Hematocrit 25.7 % (41.0-53.0); Hemoglobin 8.5 g/dL (13.5-17.5); Lymphocytes # (auto) 1.6 10 ^3/uL (0.4-5.4); Lymphocytes % (auto) 13.1 % (10.0-50.0); Mean Corpuscular Hemoglobin 27.3 pg (28.0-32.0); Mean Corpuscular Hgb Conc. 32.9 g/dL (32.0-36.0); Monocytes # (auto) 0.8 10 ^3/uL (0-1.3); Monocytes % (auto) 6.3 % (0.0-12.0); Neutrophils # (auto) 9.9 10 ^3/uL (1.6-8.6); Neutrophils % (auto) 80.1 % (37.0-80.0); Nucleated Red Blood Cells % 0.1 %; Platelet Count (auto) 370 10^3/uL (140-450); White Blood Cell 12.3 10^3/uL (4.4-10.8)
[2020-09-17 20:56] LABS: INR 1.12 (0.9-1.15)
[2020-09-17 21:10] LABS: Alanine Aminotransferase 13 U/L (16-61); Albumin 2.9 g/dL (3.4-5.0); Anion Gap 8 (5-15); Aspartate Aminotransferase 8 U/L (15-37); BUN/Creatinine Ratio 25.2; Blood Urea Nitrogen 30 mg/dL (7-18); Calcium 9.1 mg/dL (8.5-10.1); Carbon Dioxide 24 mmol/L (21-32); Chloride 98 mmol/L (98-107); GFR African American 80 mL/min; GFR Non-African American 67 mL/min; Glucose 341 mg/dL (74-106); Sodium 130 mmol/L (136-145)
[2020-09-17 21:25] LABS: Alkaline Phosphatase 80 U/L (45-117); Bilirubin, Total 0.4 mg/dL (0.2-1.0); Total Protein 8.6 g/dL (6.4-8.2)
[2020-09-17] MEDS ORDERED: MORPHINE SULF INJ 2 MG/ML SYRINGE 1ML IV PRN (22:45)
[2020-09-17] MEDS ORDERED: DEXTROSE (50%) 50ML SYRG IV PRN (22:45)
[2020-09-17] MEDS ORDERED: NITROGLYCERIN 0.4 MG SL TAB SL PRN (22:45)
[2020-09-17] MEDS ORDERED: VANCOMYCIN 1GM/250ML 250 ML IV ONE (23:00)
[2020-09-18] VITALS (7 sets, daily range): BP systolic 112–156; BP diastolic 60–81
[2020-09-18] MEDS ORDERED: ATOR20TA PO (05:11)
[2020-09-18] MEDS ORDERED: METF-370 PO (05:11)
[2020-09-18] MEDS ORDERED: LISI-648 PO (05:11)
[2020-09-18] MEDS ORDERED: METF-929 PO (05:11)
[2020-09-18] MEDS: InsuLIN REG 1unit/0.01ml Soln (100units/ml) SC SCH ×4 (06:31→22:01)
[2020-09-18] MEDS: HYDROcodone-ACET 10/325MG TAB PO PRN ×5 (06:33→21:57)
[2020-09-18] MEDS: ACCU-CHEK COMFORT CURVE STRIP VI SCH ×4 (07:00→22:51)
[2020-09-18] MEDS: ENOXAPARIN SOD 40 MG/0.4 ML SYRINGE SC SCH (08:56)
[2020-09-18] MEDS: ATORVASTATIN 20 MG TAB PO SCH (08:57)
[2020-09-18] MEDS: metFORMIN HYDROCHLORIDE 500 MG TAB PO SCH (08:57)
[2020-09-18] MEDS: VANCOMYCIN 1GM/250ML 250 ML IV SCH ×2 (08:58→22:00)
[2020-09-18] MEDS: glipiZIDE 5 MG TAB PO SCH (09:33)
[2020-09-18] MEDS: VANCOMYCIN PER PHARMACY 1,000 MG IV SCH ×2 (10:00→22:00)
[2020-09-18] MEDS: LISINOPRIL 5 MG TAB PO SCH ×2 (10:14→22:51)
[2020-09-18] MEDS: PIOGLITAZONE HYDROCHLORIDE 30 MG TAB PO SCH (10:32)
[2020-09-19 05:00] VITALS: BP 109/60
[2020-09-19] MEDS: InsuLIN REG 1unit/0.01ml Soln (100units/ml) SC SCH ×4 (05:56→22:01)
[2020-09-19] MEDS: HYDROcodone-ACET 10/325MG TAB PO PRN ×5 (05:59→21:55)
[2020-09-19] MEDS: ACCU-CHEK COMFORT CURVE STRIP VI SCH ×4 (06:40→22:00)
[2020-09-19] MEDS: ATORVASTATIN 20 MG TAB PO SCH (08:42)
[2020-09-19] MEDS: ENOXAPARIN SOD 40 MG/0.4 ML SYRINGE SC SCH (08:43)
[2020-09-19] MEDS: LISINOPRIL 5 MG TAB PO SCH ×2 (08:43→21:53)
[2020-09-19] MEDS: VANCOMYCIN 1GM/250ML 250 ML IV SCH ×2 (08:43→22:00)
[2020-09-19] MEDS: glipiZIDE 5 MG TAB PO SCH (08:47)
[2020-09-19] MEDS: VANCOMYCIN PER PHARMACY 1,000 MG IV SCH ×2 (08:47→22:00)
[2020-09-19] MEDS: metFORMIN HYDROCHLORIDE 500 MG TAB PO SCH (08:47)
[2020-09-19 08:56] VITALS: BP 94/56
[2020-09-19] MEDS: PIOGLITAZONE HYDROCHLORIDE 30 MG TAB PO SCH (13:15)
[2020-09-19 13:26] VITALS: BP 90/50
[2020-09-19 17:00] VITALS: BP 122/68
[2020-09-19 22:00] VITALS: BP 143/67
[2020-09-20 05:00] VITALS: BP 153/80
[2020-09-20] MEDS: HYDROcodone-ACET 10/325MG TAB PO PRN ×5 (05:58→23:49)
[2020-09-20] MEDS: InsuLIN REG 1unit/0.01ml Soln (100units/ml) SC SCH ×4 (06:13→22:30)
[2020-09-20] MEDS: ACCU-CHEK COMFORT CURVE STRIP VI SCH ×4 (07:16→22:30)
[2020-09-20 09:00] VITALS: BP 106/57
[2020-09-20] MEDS: PIOGLITAZONE HYDROCHLORIDE 30 MG TAB PO SCH (09:46)
[2020-09-20] MEDS: metFORMIN HYDROCHLORIDE 500 MG TAB PO SCH (10:06)
[2020-09-20] MEDS: glipiZIDE 5 MG TAB PO SCH (10:07)
[2020-09-20] MEDS: ATORVASTATIN 20 MG TAB PO SCH (10:07)
[2020-09-20] MEDS: LISINOPRIL 5 MG TAB PO SCH ×2 (10:08→22:30)
[2020-09-20] MEDS: ENOXAPARIN SOD 40 MG/0.4 ML SYRINGE SC SCH (10:09)
[2020-09-20 10:31] LABS: Basophils # (auto) 0 10 ^3/uL (0-0.2); Basophils % (auto) 0.2 % (0.0-2.0); Eosinophils # (auto) 0 10 ^3/uL (0-0.8); Eosinophils % (auto) 0.1 % (0.0-7.0); Hematocrit 27.9 % (41.0-53.0); Hemoglobin 9.3 g/dL (13.5-17.5); Lymphocytes # (auto) 1.1 10 ^3/uL (0.4-5.4); Lymphocytes % (auto) 9.8 % (10.0-50.0); Mean Corpuscular Hemoglobin 27.9 pg (28.0-32.0); Mean Corpuscular Hgb Conc. 33.3 g/dL (32.0-36.0); Mean Corpuscular Volume 83.7 fL (80.0-100.0); Monocytes # (auto) 0.7 10 ^3/uL (0-1.3); Monocytes % (auto) 6.5 % (0.0-12.0); Neutrophils # (auto) 9.2 10 ^3/uL (1.6-8.6); Neutrophils % (auto) 83.4 % (37.0-80.0); Platelet Count (auto) 417 10^3/uL (140-450); Red Blood Cells 3.33 10^6/uL (4.5-5.90); Red Cell Distribution Width 15.2 % (11.8-14.3)
[2020-09-20 11:48] LABS: BUN/Creatinine Ratio 28.8; Calcium 9.5 mg/dL (8.5-10.1)
[2020-09-20 13:00] VITALS: BP 147/77
[2020-09-20] MEDS: VANCOMYCIN 1GM/250ML 250 ML IV SCH (13:42)
[2020-09-20] MEDS: VANCOMYCIN PER PHARMACY 1,000 MG IV SCH (13:45)
[2020-09-20] MEDS ORDERED: cefTRIAXone 1GM/50ML D5W 50 ML IV ONE (15:45)
[2020-09-20] MEDS ORDERED: VANCOMYCIN PER PHARMACY 1,000 MG IV SCH (16:15)
[2020-09-20 17:00] VITALS: BP 144/75
[2020-09-20] MEDS ORDERED: ACETAMINOPHEN 325 MG TAB PO PRN (22:15)
[2020-09-20] MEDS: PIPERACILLIN-TAZOB 3.375GM 100 ML IV SCH (22:30)
[2020-09-20 22:38] VITALS: BP 140/68
[2020-09-21] MEDS: HYDROcodone-ACET 10/325MG TAB PO PRN ×4 (03:42→20:05)
[2020-09-21 05:15] VITALS: BP 158/83
[2020-09-21 06:00] VITALS: BP 146/74
[2020-09-21] MEDS: PIPERACILLIN-TAZOB 3.375GM 100 ML IV SCH ×3 (06:30→22:00)
[2020-09-21] MEDS: ACCU-CHEK COMFORT CURVE STRIP VI SCH ×4 (06:40→22:00)
[2020-09-21] MEDS: InsuLIN REG 1unit/0.01ml Soln (100units/ml) SC SCH ×4 (06:41→22:00)
[2020-09-21] MEDS: glipiZIDE 5 MG TAB PO SCH (08:33)
[2020-09-21] MEDS: metFORMIN HYDROCHLORIDE 500 MG TAB PO SCH (08:33)
[2020-09-21 08:38] VITALS: BP 144/73
[2020-09-21] MEDS ORDERED: cefTRIAXone 1GM/50ML D5W 50 ML IV SCH (09:00)
[2020-09-21] MEDS: PIOGLITAZONE HYDROCHLORIDE 30 MG TAB PO SCH (10:13)
[2020-09-21] MEDS: ATORVASTATIN 20 MG TAB PO SCH (10:13)
[2020-09-21] MEDS: LISINOPRIL 5 MG TAB PO SCH ×2 (10:14→22:00)
[2020-09-21] MEDS: ENOXAPARIN SOD 40 MG/0.4 ML SYRINGE SC SCH (10:14)
[2020-09-21 13:00] VITALS: BP 123/64
[2020-09-21 14:38] LABS: INR 1.13 (0.9-1.15); Partial Thromboplastin Time 38.4 sec (23.0-31.2)
[2020-09-21] MEDS: VANCOMYCIN 1GM/250ML 250 ML IV SCH (14:59)
[2020-09-21 17:17] VITALS: BP 98/60
[2020-09-21 22:13] VITALS: BP 100/57
[2020-09-22] MEDS: HYDROcodone-ACET 10/325MG TAB PO PRN ×4 (03:05→21:46)
[2020-09-22 05:54] VITALS: BP 102/49
[2020-09-22] MEDS: PIPERACILLIN-TAZOB 3.375GM 100 ML IV SCH ×3 (06:00→21:54)
[2020-09-22] MEDS: InsuLIN REG 1unit/0.01ml Soln (100units/ml) SC SCH ×4 (06:45→22:01)
[2020-09-22] MEDS: ACCU-CHEK COMFORT CURVE STRIP VI SCH ×4 (06:48→21:58)
[2020-09-22] MEDS: glipiZIDE 5 MG TAB PO SCH (07:30)
[2020-09-22] MEDS: metFORMIN HYDROCHLORIDE 500 MG TAB PO SCH (07:56)
[2020-09-22] MEDS ORDERED: ceFAZolin 1GM/50ML 50 ML IV ONE (08:29)
[2020-09-22] MEDS ORDERED: ceFAZolin 1GM VL ONE (08:48)
[2020-09-22] MEDS ORDERED: MIDAZOLAM HCL 1MG/1ML-2 ML VIAL ONE (09:01)
[2020-09-22] MEDS ORDERED: fentaNYL CITRATE 100 MCG/2 ML VL ONE ×2 (09:01→09:54)
[2020-09-22] MEDS ORDERED: PROPOFOL 10 MG/ML 20 ML IV ONE (09:46)
[2020-09-22] MEDS: ENOXAPARIN SOD 40 MG/0.4 ML SYRINGE SC SCH (10:00)
[2020-09-22] MEDS: PIOGLITAZONE HYDROCHLORIDE 30 MG TAB PO SCH (10:00)
[2020-09-22] MEDS: LISINOPRIL 5 MG TAB PO SCH ×2 (10:00→21:56)
[2020-09-22] MEDS: ATORVASTATIN 20 MG TAB PO SCH (10:00)
[2020-09-22] MEDS ORDERED: ONDANSETRON HCL 4 MG/2 ML VIAL ONE (10:20)
[2020-09-22] MEDS: HYDROmorphone HCL 2 MG/ML VL ONE ×2 (10:45→10:50)
[2020-09-22] MEDS ORDERED: HYDROmorphone HCL 2 MG/ML VL IV PRN (10:45)
[2020-09-22] MEDS ORDERED: ONDANSETRON HCL 4 MG/2 ML VIAL IV PRN (10:45)
[2020-09-22 13:00] VITALS: BP 113/52
[2020-09-22] MEDS: VANCOMYCIN 1GM/250ML 250 ML IV SCH (14:14)
[2020-09-22 16:57] VITALS: BP 99/51
[2020-09-22] MEDS: SODIUM CHLOR 0.9% PF (SALINE LOCK) 10ML VIAL/SYR IV SCH (21:54)
[2020-09-22 22:00] VITALS: BP 131/66
[2020-09-23] MEDS: HYDROcodone-ACET 10/325MG TAB PO PRN ×4 (02:19→22:35)
[2020-09-23 05:00] VITALS: BP 149/75
[2020-09-23] MEDS: PIPERACILLIN-TAZOB 3.375GM 100 ML IV SCH ×3 (06:21→22:31)
[2020-09-23] MEDS: ACCU-CHEK COMFORT CURVE STRIP VI SCH ×4 (06:39→22:32)
[2020-09-23] MEDS: InsuLIN REG 1unit/0.01ml Soln (100units/ml) SC SCH ×4 (06:41→22:00)
[2020-09-23] MEDS: glipiZIDE 5 MG TAB PO SCH (06:44)
[2020-09-23 09:00] VITALS: BP 113/59
[2020-09-23] MEDS: metFORMIN HYDROCHLORIDE 500 MG TAB PO SCH (09:53)
[2020-09-23] MEDS: SODIUM CHLOR 0.9% PF (SALINE LOCK) 10ML VIAL/SYR IV SCH ×2 (09:54→22:30)
[2020-09-23] MEDS: ATORVASTATIN 20 MG TAB PO SCH (09:54)
[2020-09-23] MEDS: PIOGLITAZONE HYDROCHLORIDE 30 MG TAB PO SCH (10:01)
[2020-09-23] MEDS: ENOXAPARIN SOD 40 MG/0.4 ML SYRINGE SC SCH (10:02)
[2020-09-23] MEDS: LISINOPRIL 5 MG TAB PO SCH ×2 (10:03→22:32)
[2020-09-23 12:28] VITALS: BP 138/64
[2020-09-23] MEDS: VANCOMYCIN 1GM/250ML 250 ML IV SCH (14:43)
[2020-09-23 16:29] VITALS: BP 131/67
[2020-09-23 22:00] VITALS: BP 144/79
[2020-09-23] MEDS: metFORMIN HYDROCHLORIDE 850 MG TAB PO SCH (22:30)
[2020-09-24 05:00] VITALS: BP 123/66
[2020-09-24] MEDS: ACCU-CHEK COMFORT CURVE STRIP VI SCH ×5 (06:27→23:17)
[2020-09-24] MEDS: InsuLIN REG 1unit/0.01ml Soln (100units/ml) SC SCH ×4 (06:27→22:00)
[2020-09-24] MEDS: PIPERACILLIN-TAZOB 3.375GM 100 ML IV SCH ×3 (06:28→23:13)
[2020-09-24] MEDS: glipiZIDE 5 MG TAB PO SCH (06:49)
[2020-09-24] MEDS: metFORMIN HYDROCHLORIDE 850 MG TAB PO SCH ×2 (08:08→17:32)
[2020-09-24] MEDS: HYDROcodone-ACET 10/325MG TAB PO PRN ×3 (08:08→23:25)
[2020-09-24 09:00] VITALS: BP 134/71
[2020-09-24] MEDS: PIOGLITAZONE HYDROCHLORIDE 30 MG TAB PO SCH (10:39)
[2020-09-24] MEDS: ATORVASTATIN 20 MG TAB PO SCH (10:39)
[2020-09-24] MEDS: SODIUM CHLOR 0.9% PF (SALINE LOCK) 10ML VIAL/SYR IV SCH ×2 (10:40→23:12)
[2020-09-24] MEDS: ENOXAPARIN SOD 40 MG/0.4 ML SYRINGE SC SCH (10:40)
[2020-09-24] MEDS: LISINOPRIL 5 MG TAB PO SCH ×2 (10:40→23:15)
[2020-09-24 12:33] VITALS: BP 135/70
[2020-09-24] MEDS: VANCOMYCIN 1GM/250ML 250 ML IV SCH (14:04)
[2020-09-24 16:18] VITALS: BP 95/53
[2020-09-24 22:00] VITALS: BP 118/60
[2020-09-25 05:00] VITALS: BP 139/74
[2020-09-25] MEDS: PIPERACILLIN-TAZOB 3.375GM 100 ML IV SCH ×3 (06:50→22:00)
[2020-09-25] MEDS: glipiZIDE 5 MG TAB PO SCH (06:51)
[2020-09-25] MEDS: ACCU-CHEK COMFORT CURVE STRIP VI SCH ×4 (06:51→22:00)
[2020-09-25] MEDS: InsuLIN REG 1unit/0.01ml Soln (100units/ml) SC SCH ×4 (06:52→22:00)
[2020-09-25] MEDS: HYDROcodone-ACET 10/325MG TAB PO PRN ×3 (06:52→21:02)
[2020-09-25 08:29] VITALS: BP 139/67
[2020-09-25] MEDS: metFORMIN HYDROCHLORIDE 850 MG TAB PO SCH ×2 (09:05→18:01)
[2020-09-25] MEDS: PIOGLITAZONE HYDROCHLORIDE 30 MG TAB PO SCH (10:15)
[2020-09-25] MEDS: SODIUM CHLOR 0.9% PF (SALINE LOCK) 10ML VIAL/SYR IV SCH ×2 (10:15→22:00)
[2020-09-25] MEDS: ENOXAPARIN SOD 40 MG/0.4 ML SYRINGE SC SCH (10:16)
[2020-09-25] MEDS: ATORVASTATIN 20 MG TAB PO SCH (10:16)
[2020-09-25] MEDS: LISINOPRIL 5 MG TAB PO SCH ×2 (10:16→22:00)
[2020-09-25 12:33] VITALS: BP 122/68
[2020-09-25] MEDS: VANCOMYCIN 1GM/250ML 250 ML IV SCH (14:55)
[2020-09-25 16:34] VITALS: BP 144/82
[2020-09-25 22:28] VITALS: BP 134/68
[2020-09-26] MEDS: HYDROcodone-ACET 10/325MG TAB PO PRN ×2 (01:58→06:48)
[2020-09-26 05:27] VITALS: BP 148/75
[2020-09-26] MEDS: PIPERACILLIN-TAZOB 3.375GM 100 ML IV SCH (06:47)
[2020-09-26] MEDS: InsuLIN REG 1unit/0.01ml Soln (100units/ml) SC SCH ×2 (06:52→11:30)
[2020-09-26] MEDS: ACCU-CHEK COMFORT CURVE STRIP VI SCH ×2 (06:54→11:30)
[2020-09-26] MEDS: glipiZIDE 5 MG TAB PO SCH (06:54)
[2020-09-26] MEDS: metFORMIN HYDROCHLORIDE 850 MG TAB PO SCH (08:00)
[2020-09-26 08:42] VITALS: BP 149/81
[2020-09-26] MEDS: PIOGLITAZONE HYDROCHLORIDE 30 MG TAB PO SCH (09:55)
[2020-09-26] MEDS: SODIUM CHLOR 0.9% PF (SALINE LOCK) 10ML VIAL/SYR IV SCH (09:55)
[2020-09-26] MEDS: ENOXAPARIN SOD 40 MG/0.4 ML SYRINGE SC SCH (09:56)
[2020-09-26] MEDS: ATORVASTATIN 20 MG TAB PO SCH (09:56)
[2020-09-26] MEDS: LISINOPRIL 5 MG TAB PO SCH (09:56)
[2020-09-26] MEDS ORDERED: CIPR500T4 PO (10:29)
[2020-09-26 11:03] VITALS: BP 149/81
== END 2020-09-26 11:25 | DRG 617 ==
LOC: ER 17:44 → EEVIPCON 17:44 → OVERFLOW 22:53 → WEST WING 23:44
PROVIDERS: ADMIT Internal Medicine; ATTEND Internal Medicine
PROC: 0Y6M0ZB Detachment at Right Foot, Partial 2nd Ray, Open Approach (ICD-10-PCS; 2020-09-22)
PROC: 0Y6M0ZC Detachment at Right Foot, Partial 3rd Ray, Open Approach (ICD-10-PCS; 2020-09-22)
PROC: 0Y6M0ZD Detachment at Right Foot, Partial 4th Ray, Open Approach (ICD-10-PCS; 2020-09-22)
PROC: 0Y6M0ZF Detachment at Right Foot, Partial 5th Ray, Open Approach (ICD-10-PCS; 2020-09-22)
PROC: 02HV33Z Insertion of Infusion Device into Superior Vena Cava, Percutaneous Approach (ICD-10-PCS; 2020-09-22)
PROC: B548ZZA Ultrasonography of Superior Vena Cava, Guidance (ICD-10-PCS; 2020-09-22)
PROC: 0Y6M0Z9 Detachment at Right Foot, Partial 1st Ray, Open Approach (ICD-10-PCS; principal; 2020-09-22 09:06)
DX: E11.69 Type 2 diabetes mellitus with other specified complication (principal); T81.40XA Infection following a procedure, unspecified, initial encounter; M00.9 Pyogenic arthritis, unspecified; L02.611 Cutaneous abscess of right foot; L03.115 Cellulitis of right lower limb; M86.8X7 Other osteomyelitis, ankle and foot; E11.649 Type 2 diabetes mellitus with hypoglycemia without coma; M19.079 Primary osteoarthritis, unspecified ankle and foot; L97.519 Non-pressure chronic ulcer of other part of right foot with unspecified severity; M47.817 Spondylosis without myelopathy or radiculopathy, lumbosacral region; E11.42 Type 2 diabetes mellitus with diabetic polyneuropathy; F32.9 Major depressive disorder, single episode, unspecified; Y83.8 Other surgical procedures as the cause of abnormal reaction of the patient, or of later complication, without mention of misadventure at the time of the procedure; Z89.411 Acquired absence of right great toe; Y92.89 Other specified places as the place of occurrence of the external cause; Z20.822 Contact with and (suspected) exposure to COVID-19
CPT/HCPCS: 36415; 36569; 71045; 73502; 73700; 73718; 80048; 80053; 80202; 82010; 82565; 82962; 83036; 83605; 84484; 85025; 85610; 85730; 86850; 86900; 86901; 87040; 87070; 87075; 87077; 87081; 87086; 87186; 87205; 87426; 93005; 96365; 96375; C1781; G0378; J0690; J1815; J1885; J2250; J2405; J2543; J2704